=== PATIENT | female | born 1960 | race Caucasian/White ===

== ENCOUNTER 2016-05-22 16:58 | Inpatient (IN) | payer SELFPAY ==
[~2016-05-22] VITALS: Ht 160 cm; Wt 52.1 kg
[~2016-05-22 16:58] MED LIST: ALBU0.086 INH; ALBU6.7H INH; CEFD300C PO; IBUP800T23 PO; PROM25TA5 PO
[2016-05-22 17:00] VITALS: BP 126/65; PULSE 110; RESP 18; TEMP 98.1
[2016-05-22 22:34] VITALS: BP 114/75; PULSE 100; RESP 18; O2SAT 95
[2016-05-22] MEDS ORDERED: ALBU.5I NEB (23:19)
[2016-05-22 23:20] VITALS: BP 151/86; PULSE 87; RESP 21; O2SAT 100
[2016-05-22] MEDS ORDERED: SODIUM CHLOR 0.9% 1000 ML INJ 1,000 ML IV SCH (23:26)
[2016-05-22] MEDS ORDERED: SODIUM CHLORIDE 0.9% FLUSH 5 ML FLUSH IVF PRN (23:30)
[2016-05-22] MEDS ORDERED: ONDANSETRON HCL 4 MG/2 ML VIAL IVP ONE (23:30)
[2016-05-22] MEDS ORDERED: MORPHINE SULFATE 4 MG/ML INJ IV PUSH ONE (23:30)
--- NOTE | 2016-05-22 23:31 | PD ---
HPI Chief Complaint: GI Complaint Time Seen by Provider: 23:22 Travel History International Travel<30 days: No Contact w/Intl Traveler<30days: No Traveled to known affect area: No History of Present Illness HPI The patient is a 55-year-old female who presents emergency department for 3-4 day history of flulike symptoms. The patient complains of body aches, dry nonproductive cough, then developed nausea, vomiting, diarrhea. The patient states she is unable to eat or drink for the last 2 days secondary to persistent nausea. She complains of lower abdominal pain and cramping that is intermittent and is associated loose, watery, diarrhea. She also complains of foul-smelling urine with a dark color. The patient states she was recently exposed to a family member with influenza and a family member with pneumonia. The patient does not currently have a primary physician. She does complain of subjective fevers at home with intermittent chills and sweats. Symptoms are moderate, there are no alleviating or exacerbating factors. PFSH Past Medical History Depression: Yes Cancer: Yes (ESOPHAGEAL) Diminished Hearing: No Musculoskeletal: Yes (PRIOR T11 FX, CHRONIC BACK PAIN) Neurologic: Yes ?: Not : 2 Para: 2 Tubal Ligation: Yes Past Surgical History Cardiac Surgery: No Other Surgery: Yes (CANCER SX) Social History Alcohol Use: Yes (FREQUENT USE) Tobacco Use: Yes (0.5 PPD) Substance Use: No Allergies-Medications (Allergen,Severity, Reaction): Coded Allergies: Codeine (Verified Allergy, Severe, Rash, 05/22/16) Reported Meds & Prescriptions Reported Meds & Active Scripts Active Reported Albuterol Neb (Albuterol Sulfate) 2.5 Mg/0.5 Ml Neb 2.5 Mg NEB Q4HR NEB PRN Note: The Albuterol Sulfate Inhalation Solution is concentrated and must be diluted. Read complete instructions carefully before using. Review of Systems Except as stated in HPI: all other systems reviewed are Neg General / Constitutional: Positive: Fever, Chills HENT: No: Headaches Cardiovascular: No: Chest Pain or Discomfort Respiratory: Positive: Cough, Shortness of Breath Gastrointestinal: Positive: Nausea, Vomiting, Diarrhea, Abdominal Pain Genitourinary: Positive: Other (concentrated and foul-smelling urine) Musculoskeletal: Positive: Myalgias, Weakness Skin: No Rash Neurologic: Positive: Weakness Physical Exam Narrative GENERAL: Awake, alert, 55-year-old female appears her stated age and is in no acute respiratory distress. SKIN: Warm and dry. HEAD: Atraumatic. Normocephalic. EYES: Pupils equal and round. No scleral icterus. No injection or drainage. ENT: No nasal bleeding or discharge. Dry mucous membranes. NECK: Trachea midline. No JVD. CARDIOVASCULAR: Regular rate and rhythm. No murmur appreciated. Heart rate in the 90s. RESPIRATORY: No accessory muscle use. Clear to auscultation. Breath sounds equal bilaterally. GASTROINTESTINAL: Abdomen soft, tender palpation lower quadrants bilaterally. Back: No CVA tenderness. Well-healed scar of the right scapula. MUSCULOSKELETAL: No obvious deformities. No clubbing. No cyanosis. No edema. NEUROLOGICAL: Awake and alert. No obvious cranial nerve deficits. Motor grossly within normal limits. Normal speech. PSYCHIATRIC: Appropriate mood and affect; insight and judgment normal. Data Data Last Documented VS Vital Signs Date Time Temp Pulse Resp B/P Pulse Ox O2 Delivery O2 Flow Rate FiO2 05/23/16 01:00 18 05/22/16 23:20 87 151/86 100 Room Air 05/22/16 17:00 98.1 Orders Complete Blood Count With Diff (05/22/16 23:26) Comprehensive Metabolic Panel (05/22/16 23:26) Lipase (05/22/16 23:26) Lactic Acid (05/22/16 23:26) Urinalysis - C+S If Indicated (05/22/16 23:26) Ct Abd/Pel W/O Iv Contrast (05/22/16 23:26) Iv Access Insert/Monitor (05/22/16 23:26) Ecg Monitoring (05/22/16 23:26) Oximetry (05/22/16 23:26) Morphine Inj (Morphine Inj) (05/22/16 23:30) Ondansetron Inj (Zofran Inj) (05/22/16 23:30) Sodium Chlor 0.9% 1000 Ml Inj (Ns 1000 M (05/22/16 23:26) Sodium Chloride 0.9% Flush (Ns Flush) (05/22/16 23:30) Chest, Single Ap (05/22/16 23:26) Influenzae A/B Antigen (05/22/16 23:26) Urine Culture (05/22/16 23:52) Ceftriaxone Inj (Rocephin Inj) (05/23/16 00:45) Azithromycin Inj (Zithromax Inj) (05/23/16 01:15) Admit Order (Ed Use Only) (05/23/16 01:20) Labs Laboratory Tests Test 05/22/16 05/22/16 23:38 23:52 White Blood Count 4.3 TH/MM3 Red Blood Count 3.95 MIL/MM3 Hemoglobin 13.5 GM/DL Hematocrit 39.4 % Mean Corpuscular Volume 99.9 FL Mean Corpuscular Hemoglobin 34.2 PG Mean Corpuscular Hemoglobin 34.3 % Concent Red Cell Distribution Width 14.1 % Platelet Count 108 TH/MM3 Mean Platelet Volume 10.9 FL Neutrophils (%) (Auto) 71.4 % Lymphocytes (%) (Auto) 19.0 % Monocytes (%) (Auto) 9.1 % Eosinophils (%) (Auto) 0.1 % Basophils (%) (Auto) 0.4 % Neutrophils # (Auto) 3.1 TH/MM3 Lymphocytes # (Auto) 0.8 TH/MM3 Monocytes # (Auto) 0.4 TH/MM3 Eosinophils # (Auto) 0.0 TH/MM3 Basophils # (Auto) 0.0 TH/MM3 CBC Comment DIFF FINAL Differential Comment Sodium Level 130 MEQ/L Potassium Level 4.0 MEQ/L Chloride Level 94 MEQ/L Carbon Dioxide Level 23.1 MEQ/L Anion Gap 13 MEQ/L Blood Urea Nitrogen 8 MG/DL Creatinine 0.92 MG/DL Estimat Glomerular Filtration 63 ML/MIN Rate Random Glucose 89 MG/DL Lactic Acid Level 1.4 mmol/L Calcium Level 8.5 MG/DL Total Bilirubin 0.4 MG/DL Aspartate Amino Transf 47 U/L (AST/SGOT) Alanine Aminotransferase 34 U/L (ALT/SGPT) Alkaline Phosphatase 66 U/L Total Protein 7.4 GM/DL Albumin 3.4 GM/DL Lipase 243 U/L Urine Color YELLOW Urine Turbidity HAZY Urine pH 6.0 Urine Specific [place] 1.014 Urine Protein TRACE mg/dL Urine Glucose (UA) NEG mg/dL Urine Ketones 40 mg/dL Urine Occult Blood MOD Urine Nitrite POS Urine Bilirubin NEG Urine Urobilinogen LESS THAN 2.0 MG/DL Urine Leukocyte Esterase LARGE Urine RBC 7 /hpf Urine WBC 157 /hpf Urine WBC Clumps FEW Urine Squamous Epithelial 6 /hpf Cells Urine Renal Epithelial Cells <1 /hpf Urine Bacteria MOD /hpf Urine Hyaline Casts 2 /lpf Urine Mucus FEW /lpf Microscopic Urinalysis Comment CULTURE INDICATED MDM Medical Decision Making Medical Screen Exam Complete: Yes Emergency Medical Condition: Yes Medical Record Reviewed: Yes Interpretation(s) Last Impressions Chest X-Ray 05/22/162325 Signed Impressions: Service Date/Time: May 23:33 - CONCLUSION: 1. No consolidative infiltrate in the right lower lung without evidence of pleural effusion. 2. Air-containing oval structure superimposes upon the lower right heart silhouette, probably related to a bowel structure crossing the diaphragm. CT abdomen/pelvis has been ordered and this finding can be further assessed at that time. Gerson Lafleur MD Abdomen/Pelvis CT 05/22/162325 Signed Impressions: Service Date/Time: May 23:58 - CONCLUSION: 1. No dilated loops of small or large bowel. 2. P. air-containing structure seen on recent chest x-ray represents a gastric pull-through procedure. The infiltrate seen in the right lower lung is densely consolidative and contains air bronchograms. Gerson Lafleur MD Differential Diagnosis Differential diagnosis includes dehydration, influenza, gastroenteritis, colitis , enteritis, pneumonia, electrolyte abnormality. Narrative Course IV was established, labs are drawn and sent, and the patient was placed on cardiac telemetry monitoring and continuous pulse oximetry monitoring. The patient was administered morphine, Zofran, and IV fluids. Chest x-ray was obtained. CT of the abdomen and pelvis was ordered. UA was sent to lab. UA is consistent with infection, therefore, patient was administered Rocephin 1 g intravenously. Sodium is mildly low at 130, otherwise electrolytes are mostly unremarkable. White count is normal, increase in monocytes, patient may have underlying viral gastroenteritis with pyelonephritis. Chest x-ray reveals a right lower lobe pneumonia, therefore, Zithromax was ordered. The patient's white count is normal and lactic acid is normal, rare, patient does have pyelonephritis and a right lower lobe pneumonia with gastroenteritis and poor oral intake. Therefore, the patient will be admitted. The patient does not have a primary physician, therefore, the on-call medical service was paged for admission. Physician Communication Physician Communication The on-call medical service was paged for admission. I discussed the patient with Dr. Mckenna who agrees with 23 hour observation. Diagnosis Primary Impression: Pneumonia Qualified Code: J18.1 - Pneumonia of right lower lobe due to infectious organism Additional Impressions: Pyelonephritis Gastroenteritis Admitting Information Admitting Physician Requests: Observation Condition: Stable Ron Melissa MD May 22, 2016 23:31
--- NOTE | 2016-05-23 00:06 | RADRPT ---
EXAM DATE/TIME: 05/22/2016 23:33 [facility] COMPARISON: CHEST SINGLE AP, June 03, 2014, 8:35. INDICATIONS : Fever, cough. MEDICAL HISTORY : Carcinoma, esophageal. Chronic obstructive pulmonary disease. SURGICAL HISTORY : Unobtainable. ENCOUNTER: Initial ACUITY: 3 days PAIN SCORE: 0/10 LOCATION: Bilateral chest FINDINGS: Non-consolidative infiltrate at the right lung base causes loss of delineation of the central right h emidiaphragm. Evidence of prior surgery to the right thorax with anastomosis suture in the hilar and medial right lower lung. 3 mm calcification left apex unchanged from prior exam May 2014. Multip le hemoclips in the mediastinum and left upper quadrant. The heart is normal in size. Air-containin g structure in the right retrocardiac region could represent a hiatus hernia, however, there is histo ry of prior cancer surgery to the esophagus and stomach.. CONCLUSION: 1. No consolidative infiltrate in the right lower lung without evidence of pleural effusion. 2. Air-containing oval structure superimposes upon the lower right heart silhouette, probably related to a bowel structure crossing the diaphragm. CT abdomen/pelvis has been ordered and this finding ca n be further assessed at that time. Gerson Lafleur MD on May 23, 2016 at 0:01 Board Certified Radiologist. This report was verified electronically.
[2016-05-23 00:08] LABS: AUTOMATED NEUTROPHIL # 3.1 TH/MM3 (1.8-7.7); BASOPHIL % 0.4 % (0.0-2.0); EOSINOPHIL % 0.1 % (0.0-4.0); HEMATOCRIT 39.4 % (35.0-46.0); HEMO FLAGS DIFF FINAL; LYMPHOCYTE # 0.8 TH/MM3 (1.0-4.8); MEAN CELL VOLUME 99.9 FL (80.0-100.0); MEAN CORPUSCULAR HEMOGLOBIN 34.2 PG (27.0-34.0); MEAN CORPUSCULAR HGB CONC 34.3 % (32.0-36.0); MONO % 9.1 % (0.0-8.0); NEUT % 71.4 % (16.0-70.0); PLATELET COUNT 108 TH/MM3 (150-450); RED BLOOD COUNT 3.95 MIL/MM3 (4.00-5.30); RED CELL DISTRIBUTION WIDTH 14.1 % (11.6-17.2); WHITE BLOOD COUNT 4.3 TH/MM3 (4.0-11.0)
[2016-05-23 00:21] LABS: BACTERIA, URINE MOD /hpf; BLOOD, URINE MOD (NEG); COMMENT (UR) CULTURE INDICATED; CULTURE IF INDICATED CULTURE INDICATED; GLUCOSE,URINE NEG (NEG); HYALINE CAST, URINE 2 /lpf (RARE); KETONE, URINE 40 mg/dL (NEG); MUCUS URINE FEW /lpf (OCC); NITRITE,URINE POS (NEG); RENAL EPITHELIAL CELLS <1 /hpf; SQUAMOUS EPITHELIAL CELL URINE 6 /hpf (0-5); URINE COLOR YELLOW (YELLW/STRAW)
[2016-05-23 00:27] LABS: ALKALINE PHOSPHATASE 66 U/L (45-117); ALT (GPT) 34 U/L (10-53); ANION GAP 13 MEQ/L (5-15); AST (GOT) 47 U/L (15-37); BICARBONATE 23.1 MEQ/L (21.0-32.0); BLOOD UREA NITROGEN 8 MG/DL (7-18); CHLORIDE 94 MEQ/L (98-107); GLOMERULAR FILTRATION RATE 63 ML/MIN (>89); SODIUM (NA) 130 MEQ/L (136-145); TOTAL BILIRUBIN ADULT 0.4 MG/DL (0.2-1.0)
--- NOTE | 2016-05-23 00:40 | RADRPT ---
EXAM DATE/TIME: 05/22/2016 23:58 [facility] COMPARISON: CHEST SINGLE AP, May 22, 2016, 23:33. INDICATIONS : Nausea, vomiting, and diarrhea. ORAL CONTRAST: No oral contrast ingested. RADIATION DOSE: 4.66 CTDIvol (mGy) MEDICAL HISTORY : Gastroesophageal reflux disease. Carcinoma, not otherwise specified. SURGICAL HISTORY : Tubal ligation. Hip replacement. ENCOUNTER: Initial ACUITY: 1 day PAIN SCALE: 5/10 LOCATION: abdomen TECHNIQUE: Volumetric scanning of the abdomen and pelvis was performed. Using automated exposure control and ad justment of the mA and/or kV according to patient size, radiation dose was kept as low as reasonably achievable to obtain optimal diagnostic quality images. FINDINGS: LOWER LUNGS: There is a dense area of consolidation in the right lower lung containing air bronchograms measuring 3 cm in size. Gastric pull-through procedure with air-fluid level. These findings do correlate with the appearance of the recent chest x-ray. LIVER: Homogeneous density without lesion for noncontrast technique. There is no dilation of the biliary tr ee. No calcified gallstones. SPLEEN: Normal size without lesion. PANCREAS: Within normal limits. KIDNEYS: Normal in size and shape. There is no mass, stone, or hydronephrosis. ADRENAL GLANDS: Within normal limits. VASCULAR: There is no aortic aneurysm. BOWEL/MESENTERY: The stomach, small bowel, and colon demonstrate no acute abnormality. There is no free intraperitone al air or fluid. ABDOMINAL WALL: Within normal limits. RETROPERITONEUM: There is no lymphadenopathy. BLADDER: No wall thickening or mass. REPRODUCTIVE: Within normal limits. INGUINAL: There is no lymphadenopathy or hernia. MUSCULOSKELETAL: Right total hip arthroplasty. No lytic lesions. CONCLUSION: 1. No dilated loops of small or large bowel. 2. P. air-containing structure seen on recent chest x-ray represents a gastric pull-through procedure . The infiltrate seen in the right lower lung is densely consolidative and contains air bronchograms . Gerson Lafleur MD on May 23, 2016 at 0:34 Board Certified Radiologist. This report was verified electronically.
[2016-05-23] MEDS ORDERED: cefTRIAXone INJ 1,000 MG in SODIUM CHLORIDE 0.9% INJ 100 ML IV ONE (00:45)
[2016-05-23] MEDS ORDERED: AZITHROMYCIN INJ 500 MG in SODIUM CHLOR 0.9% 250 ML INJ 250 ML IV ONE (01:15)
[2016-05-23] MEDS ORDERED: SODIUM CHLORIDE 0.9% FLUSH 5 ML FLUSH FLUSH PRN (01:30)
[2016-05-23] MEDS ORDERED: RESP: ALBUTEROL 2.5 MG/IPRATROPIUM 0.5 MG NEB (PRN) NEB (01:30)
[2016-05-23] MEDS ORDERED: BISACODYL 10 MG SUPP PR PRN (01:30)
[2016-05-23] MEDS: SODIUM CHLOR 0.9% 1000 ML INJ 1,000 ML IV SCH ×2 (02:10→09:50)
[2016-05-23 02:15] VITALS: BP 120/73; PULSE 93; RESP 21; O2SAT 97
--- NOTE | 2016-05-23 03:10 | HHI.HP ---
[facility] No Primary Care Physician Admission Diagnosis right lower lobe pneumonia, pyelonephritis, gastroenteritis Diagnoses: (1) PNA (pneumonia) Diagnosis: Principal (2) UTI (urinary tract infection) Diagnosis: Principal (3) Tobacco abuse Diagnosis: Principal Travel History International Travel<30 Days: No Contact w/Intl Traveler <30 Da: No Traveled to Known Affected Are: No History of Present Illness This is a 55-year-old female with a PMH of Anxiety, Stomach/Esophageal CA and Tobacco Abuse who presented to the ER with complaints of generalized fatigue and non-productive cough x4 days w/ associated nausea/vomiting and diarrhea. Denies fever, SOB, chest pain or chills. Does report sick contacts w/ exposure to Influenza and PNA. On arrival, BP 126/65, HR 110, O2 sat 95% on RA, Afebrile. WBC normal. Platelets 108, previously 137 on 06/07/14. Chemistry essentially unremarkable except for GFR of 63. Lactic Acid 1.4. UA positive for UTI. CXR with consolidative infiltrate right lower lung. CT Abd/Pelvis w/ no dilatation of small or large bowel loops, RLL infiltrate. Influenza negative. S/p Urine Culture in ER and Rocephin/Zithro. Review of Systems Except as stated in HPI: all other systems reviewed are Neg ROS: 14 point review of systems otherwise negative. Past Family Social History Past Medical History PMH: Anxiety, Stomach/Esophageal CA and Tobacco Abuse Past Surgical History PAST SURGICAL HISTORY: Ex Lap for Stomach CA Allergies: Coded Allergies: Codeine (Verified Allergy, Severe, Rash, 05/22/16) Family History PAST FAMILY HISTORY: Reviewed. No h/o DM or CAD Social History PAST SOCIAL HISTORY: Drinks multiple times a week. Smokes 1/2ppd. Denies drug use. Physical Exam Vital Signs Vital Signs Date Time Temp Pulse Resp B/P Pulse Ox O2 Delivery O2 Flow Rate FiO2 05/23/16 01:00 18 05/22/16 23:20 87 21 151/86 100 Room Air 05/22/16 22:34 100 18 114/75 95 Room Air 05/22/16 17:00 98.1 110 18 126/65 Physical Exam PE: GENERAL: Middle-aged white female in no acute distress. HEENT: PERRLA, EOMI. No scleral icterus or conjunctival pallor. No lid lag or facial droop. CARDIOVASCULAR: Regular rate and rhythm. No obvious murmurs to auscultation. No chest tenderness to palpation. RESPIRATORY: No obvious rhonchi or wheezing. Clear to auscultation. Breath sounds equal bilaterally. GASTROINTESTINAL: Abdomen soft, mild generalized tenderness to palpation, nondistended. BS normal. MUSCULOSKELETAL: Extremities without clubbing, cyanosis, or edema. No obvious deformities. NEUROLOGICAL: Awake, alert and oriented x4. No focal neurologic deficits. Moving both upper and lower extremities spontaneously. Laboratory Laboratory Tests Test 05/22/16 05/22/16 23:38 23:52 White Blood Count 4.3 Red Blood Count 3.95 Hemoglobin 13.5 Hematocrit 39.4 Mean Corpuscular Volume 99.9 Mean Corpuscular Hemoglobin 34.2 Mean Corpuscular Hemoglobin 34.3 Concent Red Cell Distribution Width 14.1 Platelet Count 108 Mean Platelet Volume 10.9 Neutrophils (%) (Auto) 71.4 Lymphocytes (%) (Auto) 19.0 Monocytes (%) (Auto) 9.1 Eosinophils (%) (Auto) 0.1 Basophils (%) (Auto) 0.4 Neutrophils # (Auto) 3.1 Lymphocytes # (Auto) 0.8 Monocytes # (Auto) 0.4 Eosinophils # (Auto) 0.0 Basophils # (Auto) 0.0 CBC Comment DIFF FINAL Differential Comment Sodium Level 130 Potassium Level 4.0 Chloride Level 94 Carbon Dioxide Level 23.1 Anion Gap 13 Blood Urea Nitrogen 8 Creatinine 0.92 Estimat Glomerular Filtration 63 Rate Random Glucose 89 Lactic Acid Level 1.4 Calcium Level 8.5 Total Bilirubin 0.4 Aspartate Amino Transf 47 (AST/SGOT) Alanine Aminotransferase 34 (ALT/SGPT) Alkaline Phosphatase 66 Total Protein 7.4 Albumin 3.4 Lipase 243 Urine Color YELLOW Urine Turbidity HAZY Urine pH 6.0 Urine Specific [place] 1.014 Urine Protein TRACE Urine Glucose (UA) NEG Urine Ketones 40 Urine Occult Blood MOD Urine Nitrite POS Urine Bilirubin NEG Urine Urobilinogen LESS THAN 2.0 Urine Leukocyte Esterase LARGE Urine RBC 7 Urine WBC 157 Urine WBC Clumps FEW Urine Squamous Epithelial 6 Cells Urine Renal Epithelial Cells <1 Urine Bacteria MOD Urine Hyaline Casts 2 Urine Mucus FEW Microscopic Urinalysis Comment CULTURE INDICATED Date/Time Procedure Status Source Growth 05/22/16 23:52 Urine Culture Received Urine Clean Catch Pending 05/22/16 23:38 Influenza Types A,B Antigen (TIFFANIE) - Final Complete Nasal Aspirate NEGATIVE FOR FLU A AND B ANTIGEN.... Result Diagram: 05/22/16233705/22/162337 Assessment and Plan Problem List: (1) UTI (urinary tract infection) ICD Code: N39.0 Status: Acute (2) PNA (pneumonia) ICD Code: J18.9 Status: Acute (3) Tobacco abuse ICD Code: Z72.0 Status: Acute Assessment and Plan A/P: 1. UTI: U/a w/ UTI, s/p Urine Culture and IV Rocephin in ER, will continue w/ IV Abx, follow up cultures, IVF for hydration. Antiemetics as needed. CT Abd/ Pelvis negative for small/large bowel dilatation, images reviewed by me. 2. PNA: CXR w/ RLL consolidation, images reviewed by me, c/o non-productive cough, +sick contacts w/ Influenza and PNA. Influenza negative. S/p Rocephin/ Zithro in ER, will continue w/ IV Abx, DuoNeb, Mucinex, Symbicort. 3. Tobacco Abuse: Pt counselled. Ativan/NicoDerm prn if needed. 4. DVT Prophylaxis: SCD/Teds. 5. Social work for d/c planning as needed. 6. Case discussed w/ ER physician at length. Ruth Mckenna MD May 23, 2016 03:10
[2016-05-23 04:53] VITALS: BP 138/67; PULSE 81; RESP 18; TEMP 97.7; O2SAT 97
[2016-05-23] MEDS: ONDANSETRON HCL 4 MG/2 ML VIAL IVP PRN ×3 (05:25→21:33)
[2016-05-23 08:00] VITALS: BP 129/77; PULSE 87; RESP 18; TEMP 99.8; O2SAT 95
[2016-05-23] MEDS: SODIUM CHLORIDE 0.9% FLUSH 5 ML FLUSH FLUSH SCH ×2 (08:35→21:00)
[2016-05-23] MEDS: guaiFENesin E.R. 600 MG TAB PO SCH ×2 (08:35→21:33)
[2016-05-23] MEDS: MORPHINE SULFATE 4 MG/ML INJ IV PRN ×2 (08:36→18:23)
[2016-05-23] MEDS: BUDESONIDE-FORMOTEROL 160/4.5 MCG INHALER INH SCH ×2 (09:51→21:33)
--- NOTE | 2016-05-23 10:36 | HHI.PR ---
Subjective Remarks Follow-up for pneumonia. The patient is feeling better today. She has been able to ambulate some. She states that her urine had been some foul-smelling. She has some lower abdominal discomfort. She states that she had esophageal stomach cancer years ago, but was treated. Objective Vitals Vital Signs Date Time Temp Pulse Resp B/P Pulse Ox O2 Delivery O2 Flow Rate FiO2 05/23/16 08:00 99.8 87 18 129/77 95 05/23/16 04:53 97.7 81 18 138/67 97 05/23/16 02:15 93 21 120/73 97 Room Air 05/23/16 01:00 18 05/22/16 23:20 87 21 151/86 100 Room Air 05/22/16 22:34 100 18 114/75 95 Room Air 05/22/16 17:00 98.1 110 18 126/65 I/O 05/22/16 05/22/16 05/22/16 05/23/16 05/23/16 05/23/16 07:00 15:00 23:00 07:00 15:00 23:00 Intake Total 679 ml Balance 679 ml Intake IV Total 679 ml Result Diagram: 05/22/16 2338 05/22/168 Imaging Last Impressions Chest X-Ray 05/22/162325 Signed Impressions: Service Date/Time: May 23:33 - CONCLUSION: 1. No consolidative infiltrate in the right lower lung without evidence of pleural effusion. 2. Air-containing oval structure superimposes upon the lower right heart silhouette, probably related to a bowel structure crossing the diaphragm. CT abdomen/pelvis has been ordered and this finding can be further assessed at that time. Gerson Lafleur MD Abdomen/Pelvis CT 05/22/162325 Signed Impressions: Service Date/Time: May 23:58 - CONCLUSION: 1. No dilated loops of small or large bowel. 2. P. air-containing structure seen on recent chest x-ray represents a gastric pull-through procedure. The infiltrate seen in the right lower lung is densely consolidative and contains air bronchograms. Gerson Lafleur MD Objective Remarks GENERAL: Well-developed well-nourished. In no acute distress. SKIN: Warm and dry. No lesions noted. HEENT: Normocephalic. Pupils equal and round. Mucous membranes pink and moist. CARDIOVASCULAR: Regular rate and rhythm. No murmur appreciated. RESPIRATORY: No accessory muscle use. Clear to auscultation. Decreased breath sounds bilaterally. GASTROINTESTINAL: Abdomen soft, non-tender, nondistended. Bowel sounds x4. Right CVA tenderness. MUSCULOSKELETAL: No obvious deformities. No clubbing or cyanosis. No edema. NEUROLOGICAL: Awake and alert. No focal neurological deficits. Moves upper and lower extremities spontaneously. Normal speech. PSYCHIATRIC: Appropriate mood and affect; insight and judgment normal. A/P Problem List: (1) UTI (urinary tract infection) ICD Code: N39.0 Status: Acute (2) PNA (pneumonia) ICD Code: J18.9 Status: Acute (3) Tobacco abuse ICD Code: Z72.0 Status: Chronic Assessment and Plan 55-year-old female with a PMH of Anxiety, Stomach/Esophageal CA and Tobacco Abuse who presented with generalized fatigue and non-productive cough x4 days Sepsis secondary to PNA and UTI: U/a w/ evidence of UTI, possible pyelonephritis . Continue empiric IV Rocephin. Follow-up urine culture. IVF for hydration. Antiemetics as needed. CT Abd/Pelvis unremarkable for any significant intra-abdominal finding. PNA: CXR w/ RLL consolidation, personally reviewed. Influenza negative. Continue IV azithromycin and Rocephin. DuoNeb, Mucinex, Symbicort. Check urinary antigens. Tobacco Abuse: Pt counseling. NicoDerm prn if needed. DVT Prophylaxis: SCD/Teds. Written by Zbigniew Collins, acting as scribe for Dr. Ochoa on 05/23/16 at 10:35. All or portions of this note were transcribed by scribe []. I, Dr. Nabil Ochoa personally performed the history, physical exam, and medical decision making; and confirmed the accuracy of the information in the transcribed note. Authenticated by Dr. Nabil Ochoa on 05/23/16 at 14:47. Discharge Planning Follow-up cultures, possible DC tomorrow if patient continues to improve. Zbigniew Collins May 23, 2016 10:36 Nabil Ochoa MD May 23, 2016 14:48
[2016-05-23 11:29] LABS: BICARBONATE 22.8 MEQ/L (21.0-32.0); POTASSIUM 3.4 MEQ/L (3.5-5.1)
[2016-05-23 11:44] LABS: CALCIUM-PROTEIN CORRECTED 8.3 MG/DL (8.5-10.1)
[2016-05-23 12:00] VITALS: BP 130/79; PULSE 98; RESP 18; TEMP 101; O2SAT 94
[2016-05-23 16:00] VITALS: BP 118/70; PULSE 93; RESP 20; TEMP 102; O2SAT 92
[2016-05-23] MEDS: ACETAMINOPHEN 325 MG TAB PO PRN (18:22)
[2016-05-23] MEDS ORDERED: POTASSIUM CHLORIDE 20 MEQ CONTROLLED RELEASE TAB PO ONE (18:30)
[2016-05-23 20:03] VITALS: BP 121/86; PULSE 92; RESP 16; TEMP 100.7; O2SAT 93
[2016-05-24] VITALS (7 sets, daily range): BP systolic 116–143; BP diastolic 64–74; PULSE 78–87; RESP 18–22; TEMP 97.8–100.9; O2SAT 94–98
[2016-05-24] MEDS: AZITHROMYCIN 250 MG TAB PO SCH (00:13)
[2016-05-24] MEDS: ACETAMINOPHEN 325 MG TAB PO PRN ×2 (00:13→18:37)
[2016-05-24] MEDS: cefTRIAXone INJ 1,000 MG in SODIUM CHLORIDE 0.9% INJ 100 ML IV SCH (00:13)
[2016-05-24] MEDS: MORPHINE SULFATE 4 MG/ML INJ IV PRN ×4 (00:21→20:35)
[2016-05-24] MEDS ORDERED: AZITHROMYCIN INJ 500 MG in SODIUM CHLOR 0.9% 250 ML INJ 250 ML IV SCH (02:00)
[2016-05-24] MEDS: SODIUM CHLOR 0.9% 1000 ML INJ 1,000 ML IV SCH (04:22)
[2016-05-24] MEDS: ONDANSETRON HCL 4 MG/2 ML VIAL IVP PRN ×3 (04:28→18:08)
[2016-05-24 06:48] LABS: BASOPHIL % 0.5 % (0.0-2.0); EOSINOPHIL % 0.3 % (0.0-4.0); LYMPH % 21.5 % (9.0-44.0); LYMPHOCYTE # 0.6 TH/MM3 (1.0-4.8); MEAN CELL VOLUME 99.1 FL (80.0-100.0); MEAN CORPUSCULAR HEMOGLOBIN 33.9 PG (27.0-34.0); MEAN CORPUSCULAR HGB CONC 34.2 % (32.0-36.0); MONO % 7.9 % (0.0-8.0); NEUT % 69.8 % (16.0-70.0); PLATELET COUNT 80 TH/MM3 (150-450); RED BLOOD COUNT 3.13 MIL/MM3 (4.00-5.30); RED CELL DISTRIBUTION WIDTH 14.1 % (11.6-17.2); WHITE BLOOD COUNT 2.9 TH/MM3 (4.0-11.0)
[2016-05-24 07:08] LABS: HEMO FLAGS AUTO DIFF
[2016-05-24 07:13] LABS: BICARBONATE 20.5 MEQ/L (21.0-32.0); CALCIUM-PROTEIN CORRECTED 8.3 MG/DL (8.5-10.1); MAGNESIUM 1.9 MG/DL (1.5-2.5); TOTAL BILIRUBIN ADULT 0.2 MG/DL (0.2-1.0)
[2016-05-24] MEDS: SODIUM CHLORIDE 0.9% FLUSH 5 ML FLUSH FLUSH SCH ×2 (08:37→20:35)
--- NOTE | 2016-05-24 08:53 | HHI.PR ---
Subjective Remarks Follow-up for sepsis. The patient feels poorly today. The patient complains of flank pain today. Still with lower abdominal discomfort. She has been having nausea and dry heaving with decreased appetite, but no vomiting. Objective Vitals Vital Signs Date Time Temp Pulse Resp B/P Pulse Ox O2 Delivery O2 Flow Rate FiO2 05/24/16 08:00 98.1 78 18 116/65 96 05/24/16 04:17 98.7 79 22 120/64 95 05/24/16 01:48 98.9 83 21 126/71 95 05/23/16 20:03 100.7 92 16 121/86 93 05/23/16 16:00 102.0 93 20 118/70 92 05/23/16 12:00 101.0 98 18 130/79 94 I/O 05/23/16 05/23/16 05/23/16 05/24/16 05/24/16 05/24/16 07:00 15:00 23:00 07:00 15:00 23:00 Intake Total 679 ml 280 ml 770 ml Balance 679 ml 280 ml 770 ml Intake Oral 280 ml 120 ml IV Total 679 ml 650 ml # Voids 3 3 # Bowel Movements 1 Result Diagram: 05/24/16 0550 05/24/16 0550 Imaging Last Impressions Chest X-Ray 05/22/162325 Signed Impressions: Service Date/Time: May 23:33 - CONCLUSION: 1. No consolidative infiltrate in the right lower lung without evidence of pleural effusion. 2. Air-containing oval structure superimposes upon the lower right heart silhouette, probably related to a bowel structure crossing the diaphragm. CT abdomen/pelvis has been ordered and this finding can be further assessed at that time. Gerson Lafleur MD Abdomen/Pelvis CT 05/22/162325 Signed Impressions: Service Date/Time: May 23:58 - CONCLUSION: 1. No dilated loops of small or large bowel. 2. P. air-containing structure seen on recent chest x-ray represents a gastric pull-through procedure. The infiltrate seen in the right lower lung is densely consolidative and contains air bronchograms. Gerson Lafleur MD Objective Remarks GENERAL: Well-developed well-nourished. In no acute distress. SKIN: Warm and dry. No lesions noted. HEENT: Normocephalic. Pupils equal and round. Mucous membranes pink and moist. CARDIOVASCULAR: Regular rate and rhythm. No murmur appreciated. RESPIRATORY: No accessory muscle use. Clear to auscultation. Decreased breath sounds bilaterally. GASTROINTESTINAL: Abdomen soft, mild lower abdomen TTP, nondistended. Bowel sounds x4. Bilateral CVA tenderness, R>L. MUSCULOSKELETAL: No obvious deformities. No clubbing or cyanosis. No edema. NEUROLOGICAL: Awake and alert. No focal neurological deficits. Moves upper and lower extremities spontaneously. Normal speech. PSYCHIATRIC: Appropriate mood and affect; insight and judgment normal. A/P Problem List: (1) UTI (urinary tract infection) ICD Code: N39.0 Status: Acute (2) PNA (pneumonia) ICD Code: J18.9 Status: Acute (3) Tobacco abuse ICD Code: Z72.0 Status: Chronic Assessment and Plan 55-year-old female with a PMH of Anxiety, Stomach/Esophageal CA and Tobacco Abuse who presented with generalized fatigue and non-productive cough x4 days Sepsis: Tmax 102, tachycardia, WBC 2.9. Continue treatment with antibiotics as below. IVF. Check blood cultures. UTI, suspect pyelonephritis: U/a w/ evidence of UTI . Preliminary culture growing gram-negative rods. Continue empiric IV Rocephin. Follow-up urine culture. Antiemetics as needed. CT Abd/Pelvis unremarkable for any significant intra-abdominal finding. PNA: CXR w/ RLL consolidation, personally reviewed. Influenza and urinary antigens negative. Continue azithromycin and Rocephin. DuoNeb, Mucinex, Symbicort. Thrombocytopenia: Platelets decreased from 108 to 80. Rule out DIC, check fibrinogen and coags. Monitor CBC. Hypokalemia: Replace orally and add KCl to IV. Tobacco Abuse: Pt counseling. NicoDerm prn if needed. DVT Prophylaxis: SCD/Teds. Written by Zbigniew Collins, acting as scribe for Dr. Ochoa on 05/24/16 at 08:53. All or portions of this note were transcribed by scribe []. I, Dr. Nabil Ochoa personally performed the history, physical exam, and medical decision making; and confirmed the accuracy of the information in the transcribed note. Authenticated by Dr. Nabil Ochoa on 05/24/16 at 12:58. Discharge Planning Clinically worse today, meets sepsis criteria, admit to inpatient Zbigniew Collins May 24, 2016 08:53 Nabil Ochoa MD May 24, 2016 12:58
[2016-05-24] MEDS ORDERED: POTASSIUM CHLORIDE 20 MEQ CONTROLLED RELEASE TAB PO ONE (09:00)
[2016-05-24] MEDS: NS + KCL 20 MEQ INJ 1,000 ML IV SCH ×2 (09:25→20:35)
[2016-05-24] MEDS: BUDESONIDE-FORMOTEROL 160/4.5 MCG INHALER INH SCH ×2 (09:26→20:34)
[2016-05-24 09:29] LABS: PLATELET ESTIMATE SMEAR LOW (NORMAL); PLATELET MORPHOLOGY NORMAL (NORMAL); SCAN/DIFF AUTO DIFF CONFIRMED
[2016-05-24 09:37] LABS: APTT (PATIENT) 31.9 SEC (24.3-30.1); PROTHROMBIN TIME - PATIENT 10.7 SEC (9.8-11.6)
[2016-05-24] MEDS: guaiFENesin E.R. 600 MG TAB PO SCH ×2 (09:37→20:34)
[2016-05-24] MEDS ORDERED: SODIUM CHLOR 0.9% 250 ML INJ 250 ML IV ONE (12:00)
[2016-05-24] MEDS: POTASSIUM CHLOR 20 MEQ PREMIX 100 ML IV SCH ×2 (12:22→15:54)
[2016-05-25 00:18] VITALS: BP 142/85; PULSE 81; RESP 21; TEMP 98.7; O2SAT 98
[2016-05-25] MEDS: ONDANSETRON HCL 4 MG/2 ML VIAL IVP PRN ×4 (00:26→22:10)
[2016-05-25] MEDS: cefTRIAXone INJ 1,000 MG in SODIUM CHLORIDE 0.9% INJ 100 ML IV SCH (00:26)
[2016-05-25] MEDS: AZITHROMYCIN 250 MG TAB PO SCH (03:24)
[2016-05-25 04:00] VITALS: BP 125/75; PULSE 82; RESP 18; TEMP 98.7; O2SAT 99
[2016-05-25] MEDS: MORPHINE SULFATE 4 MG/ML INJ IV PRN ×4 (04:03→20:05)
[2016-05-25 08:00] VITALS: BP 145/78; PULSE 74; RESP 18; TEMP 98.2; O2SAT 96
[2016-05-25 08:26] LABS: AUTOMATED NEUTROPHIL # 1.7 TH/MM3 (1.8-7.7); BASOPHIL % 0.5 % (0.0-2.0); EOSINOPHIL % 0.5 % (0.0-4.0); HEMATOCRIT 31.7 % (35.0-46.0); LYMPH % 28.6 % (9.0-44.0); LYMPHOCYTE # 0.8 TH/MM3 (1.0-4.8); MEAN CELL VOLUME 99.7 FL (80.0-100.0); MEAN CORPUSCULAR HEMOGLOBIN 33.8 PG (27.0-34.0); MEAN CORPUSCULAR HGB CONC 33.9 % (32.0-36.0); MONO % 8.1 % (0.0-8.0); NEUT % 62.3 % (16.0-70.0); PLATELET COUNT 81 TH/MM3 (150-450); RED BLOOD COUNT 3.18 MIL/MM3 (4.00-5.30); RED CELL DISTRIBUTION WIDTH 14.2 % (11.6-17.2); WHITE BLOOD COUNT 2.7 TH/MM3 (4.0-11.0)
[2016-05-25 08:44] LABS: BICARBONATE 16.3 MEQ/L (21.0-32.0); MAGNESIUM 1.8 MG/DL (1.5-2.5); POTASSIUM 4.1 MEQ/L (3.5-5.1)
[2016-05-25 08:52] LABS: HEMO FLAGS AUTO DIFF
[2016-05-25] MEDS: BUDESONIDE-FORMOTEROL 160/4.5 MCG INHALER INH SCH ×2 (09:06→20:06)
[2016-05-25] MEDS: guaiFENesin E.R. 600 MG TAB PO SCH ×2 (09:06→20:05)
[2016-05-25] MEDS: SODIUM CHLORIDE 0.9% FLUSH 5 ML FLUSH FLUSH SCH ×2 (09:07→20:06)
[2016-05-25] MEDS: NS + KCL 20 MEQ INJ 1,000 ML IV SCH ×2 (09:14→20:09)
[2016-05-25 10:41] LABS: BURR CELLS 1+ (NORMAL)
[2016-05-25 10:42] LABS: PLATELET ESTIMATE SMEAR LOW (NORMAL); PLATELET MORPHOLOGY ENLARGED (NORMAL); SCAN/DIFF AUTO DIFF CONFIRMED
--- NOTE | 2016-05-25 11:55 | HHI.PR ---
Subjective Remarks F/U UTI and PNA. Usual abd pain dw RN Objective Vitals Vital Signs Date Time Temp Pulse Resp B/P Pulse Ox O2 Delivery O2 Flow Rate FiO2 05/25/16 08:00 98.2 74 18 145/78 96 05/25/16 04:00 98.7 82 18 125/75 99 05/25/16 00:18 98.7 81 21 142/85 98 05/24/16 19:22 97.8 83 21 143/74 98 05/24/16 18:34 100.9 05/24/16 16:00 100.4 87 18 131/70 94 05/24/16 12:00 98.7 83 18 127/66 96 I/O 05/24/16 05/24/16 05/24/16 05/25/16 05/25/16 05/25/16 07:00 15:00 23:00 07:00 15:00 23:00 Intake Total 770 ml 0 ml 120 ml Balance 770 ml 0 ml 120 ml Intake Oral 120 ml 0 ml 120 ml Oral Supplement 0 ml IV Total 650 ml # Voids 3 4 1 # Bowel Movements 0 Result Diagram: 05/25/1662505/25/16625 Imaging Last Impressions Chest X-Ray 05/22/162325 Signed Impressions: Service Date/Time: May 23:33 - CONCLUSION: 1. No consolidative infiltrate in the right lower lung without evidence of pleural effusion. 2. Air-containing oval structure superimposes upon the lower right heart silhouette, probably related to a bowel structure crossing the diaphragm. CT abdomen/pelvis has been ordered and this finding can be further assessed at that time. Gerson Lafleur MD Abdomen/Pelvis CT 05/22/162325 Signed Impressions: Service Date/Time: May 23:58 - CONCLUSION: 1. No dilated loops of small or large bowel. 2. P. air-containing structure seen on recent chest x-ray represents a gastric pull-through procedure. The infiltrate seen in the right lower lung is densely consolidative and contains air bronchograms. Gerson Lafleur MD Objective Remarks GENERAL: Well-developed well-nourished. In no acute distress. SKIN: Warm and dry. No lesions noted. HEENT: Normocephalic. Pupils equal and round. Mucous membranes pink and moist. CARDIOVASCULAR: Regular rate and rhythm. No murmur appreciated. RESPIRATORY: No accessory muscle use. Clear to auscultation. Decreased breath sounds bilaterally. GASTROINTESTINAL: Abdomen soft, mild lower abdomen TTP, nondistended. Bowel sounds x4. MUSCULOSKELETAL: No obvious deformities. No clubbing or cyanosis. No edema. NEUROLOGICAL: Awake and alert. No focal neurological deficits. Moves upper and lower extremities spontaneously. Normal speech. PSYCHIATRIC: Appropriate mood and affect; insight and judgment normal. Procedures None A/P Problem List: (1) UTI (urinary tract infection) ICD Code: N39.0 Status: Acute (2) PNA (pneumonia) ICD Code: J18.9 Status: Acute (3) Tobacco abuse ICD Code: Z72.0 Status: Chronic Assessment and Plan 55-year-old female with a PMH of Anxiety, Stomach/Esophageal CA and Tobacco Abuse who presented with generalized fatigue and non-productive cough x4 days Sepsis: Tmax 102, tachycardia, WBC 2.9. Improved but on culture about the worsening acidosis. Continue treatment with antibiotics as below. IVF. Check blood cultures negative to date. BMP and mag in the morning UTI, suspect pyelonephritis: U/a w/ evidence of UTI . Preliminary culture growing gram-negative rods. Continue empiric IV Rocephin. Follow-up urine culture. Antiemetics as needed. CT Abd/Pelvis unremarkable for any significant intra-abdominal finding. PNA: CXR w/ RLL consolidation, personally reviewed. Influenza and urinary antigens negative. Continue azithromycin and Rocephin. DuoNeb, Mucinex, Symbicort. Thrombocytopenia: Platelets decreased from 108 to 80. DIC workup negative. Stable thrombocytopenia. Monitor CBC. Hypokalemia: Replace orally and add KCl to IV. Tobacco Abuse: Pt counseling. NicoDerm prn if needed. DVT Prophylaxis: SCD/Teds. Discharge Planning Discharge in 1-2 days Nabil Ochoa MD May 25, 2016 11:55
[2016-05-25 12:00] VITALS: BP 107/73; PULSE 78; RESP 18; TEMP 98.2; O2SAT 95
[2016-05-25] MEDS ORDERED: CIPR-9 PO (13:42)
[2016-05-25] MEDS ORDERED: ZITH250T PO (13:42)
--- NOTE | 2016-05-25 13:42 | HHI.DCPOC ---
Discharge Care Plan Diagnosis: (1) UTI (urinary tract infection) (2) PNA (pneumonia) Your Health Problems Are: Difficulty with ADL Exercise Tolerance Goals to Promote Your Health * To prevent worsening of your condition and complications * To maintain your health at the optimal level Directions to Meet Your Goals Take your medications as prescribed Follow your dietary instruction Follow activity as directed Keep your appointments as scheduled Take your immunizations and boosters as scheduled If your symptoms worsen call your PCP, if no PCP go to Urgent Care Center or Emergency Room Smoking is Dangerous to Your Health. Avoid second hand smoke Call the 24-hour hour crisis hotline for domestic abuse at Nabil Ochoa MD May 25, 2016 13:42
[2016-05-25 16:00] VITALS: BP 129/73; PULSE 78; RESP 18; TEMP 98.5; O2SAT 99
[2016-05-25 20:00] VITALS: BP 126/82; PULSE 76; RESP 20; TEMP 98.7; O2SAT 97
[2016-05-26] VITALS: BP 141/84; PULSE 81; RESP 18; TEMP 98; O2SAT 96
[2016-05-26] MEDS: MORPHINE SULFATE 4 MG/ML INJ IV PRN ×7 (00:20→21:25)
[2016-05-26] MEDS: cefTRIAXone INJ 1,000 MG in SODIUM CHLORIDE 0.9% INJ 100 ML IV SCH (00:21)
[2016-05-26] MEDS: AZITHROMYCIN 250 MG TAB PO SCH (00:23)
[2016-05-26 04:00] VITALS: BP 145/83; PULSE 81; RESP 18; TEMP 97.7; O2SAT 97
[2016-05-26] MEDS: ONDANSETRON HCL 4 MG/2 ML VIAL IVP PRN ×3 (06:14→21:26)
[2016-05-26 06:54] LABS: AUTOMATED NEUTROPHIL # 1.7 TH/MM3 (1.8-7.7); BASOPHIL % 0.5 % (0.0-2.0); EOSINOPHIL % 1.8 % (0.0-4.0); HEMATOCRIT 32.4 % (35.0-46.0); LYMPH % 26.5 % (9.0-44.0); LYMPHOCYTE # 0.7 TH/MM3 (1.0-4.8); MEAN CELL VOLUME 100.1 FL (80.0-100.0); MEAN CORPUSCULAR HEMOGLOBIN 34.3 PG (27.0-34.0); MEAN CORPUSCULAR HGB CONC 34.3 % (32.0-36.0); NEUT % 62.2 % (16.0-70.0); PLATELET COUNT 96 TH/MM3 (150-450); RED BLOOD COUNT 3.23 MIL/MM3 (4.00-5.30); RED CELL DISTRIBUTION WIDTH 14.1 % (11.6-17.2); WHITE BLOOD COUNT 2.7 TH/MM3 (4.0-11.0)
[2016-05-26 07:04] LABS: HEMO FLAGS AUTO DIFF
[2016-05-26 07:07] LABS: BICARBONATE 13.9 MEQ/L (21.0-32.0); MAGNESIUM 1.7 MG/DL (1.5-2.5); POTASSIUM 4.3 MEQ/L (3.5-5.1)
[2016-05-26 08:00] VITALS: BP 137/71; PULSE 83; RESP 12; TEMP 98.7; O2SAT 96
[2016-05-26] MEDS: BUDESONIDE-FORMOTEROL 160/4.5 MCG INHALER INH SCH ×2 (08:09→21:25)
[2016-05-26] MEDS: guaiFENesin E.R. 600 MG TAB PO SCH ×2 (08:09→21:25)
[2016-05-26] MEDS: SODIUM CHLORIDE 0.9% FLUSH 5 ML FLUSH FLUSH SCH ×2 (08:11→21:25)
[2016-05-26 08:17] LABS: BURR CELLS 2+ (NORMAL); PLATELET ESTIMATE SMEAR LOW (NORMAL)
[2016-05-26] MEDS: NS + KCL 20 MEQ INJ 1,000 ML IV SCH ×2 (08:17→21:33)
[2016-05-26 08:18] LABS: PLATELET MORPHOLOGY NORMAL (NORMAL); SCAN/DIFF AUTO DIFF CONFIRMED
--- NOTE | 2016-05-26 11:36 | HHI.PR ---
Subjective Remarks Follow-up UTI and pneumonia. Still nauseous. Vomited 1 yesterday. Improving pain. Discussed with RN Objective Vitals Vital Signs Date Time Temp Pulse Resp B/P Pulse Ox O2 Delivery O2 Flow Rate FiO2 05/26/16 08:00 98.7 83 12 137/71 96 05/26/16 04:00 97.7 81 18 145/83 97 05/26/16 00:00 98.0 81 18 141/84 96 05/25/16 20:00 98.7 76 20 126/82 97 05/25/16 16:00 98.5 78 18 129/73 99 05/25/16 12:00 98.2 78 18 107/73 95 I/O 05/25/16 05/25/16 05/25/16 05/26/16 05/26/16 05/26/16 07:00 15:00 23:00 07:00 15:00 23:00 Intake Total 120 ml 1588 ml 120 ml 240 ml Output Total 1000 ml Balance 120 ml 1588 ml 120 ml -760 ml Intake Oral 120 ml 480 ml 120 ml 240 ml IV Total 1108 ml Output Urine Total 1000 ml # Voids 1 4 1 # Bowel Movements 0 0 0 Result Diagram: 05/26/16 0540 05/26/16 0540 Objective Remarks GENERAL: Well-developed well-nourished. In no acute distress. SKIN: Warm and dry. No lesions noted. HEENT: Normocephalic. Pupils equal and round. Mucous membranes pink and moist. CARDIOVASCULAR: Regular rate and rhythm. No murmur appreciated. RESPIRATORY: No accessory muscle use. Clear to auscultation. Decreased breath sounds bilaterally. GASTROINTESTINAL: Abdomen soft, mild lower abdomen TTP, nondistended. Bowel sounds x4. MUSCULOSKELETAL: No obvious deformities. No clubbing or cyanosis. No edema. NEUROLOGICAL: Awake and alert. No focal neurological deficits. Moves upper and lower extremities spontaneously. Normal speech. PSYCHIATRIC: Appropriate mood and affect; insight and judgment normal. Nonfocal Procedures None A/P Problem List: (1) UTI (urinary tract infection) ICD Code: N39.0 Status: Acute (2) PNA (pneumonia) ICD Code: J18.9 Status: Acute (3) Tobacco abuse ICD Code: Z72.0 Status: Chronic Assessment and Plan 55-year-old female with a PMH of Anxiety, Stomach/Esophageal CA and Tobacco Abuse who presented with generalized fatigue and non-productive cough x4 days Sepsis: Tmax 102, tachycardia, WBC 2.9. Improved but I am concerned about the worsening acidosis nightly secondary to vomiting. Continue treatment with antibiotics as below. IVF. Check blood cultures negative to date. BMP and mag in the morning. We'll add scheduled Reglan. Questionable RTA UTI, suspect pyelonephritis: U/a w/ evidence of UTI . Preliminary culture growing gram-negative rods. Continue empiric IV Rocephin. Follow-up urine culture. Antiemetics as needed. CT Abd/Pelvis unremarkable for any significant intra-abdominal finding. PNA: CXR w/ RLL consolidation, personally reviewed. Influenza and urinary antigens negative. Continue azithromycin and Rocephin. DuoNeb, Mucinex, Symbicort. Pancytopenia. DIC workup negative. Stable likely secondary to sepsis. Monitor CBC. Hypokalemia: Replace orally and add KCl to IV. Tobacco Abuse: Pt counseling. NicoDerm prn if needed. DVT Prophylaxis: SCD/Teds. Discharge Planning Not stable for discharge Nabil Ochoa MD May 26, 2016 11:36
[2016-05-26 12:00] VITALS: BP 139/76; PULSE 86; RESP 16; TEMP 98.4; O2SAT 97
[2016-05-26 16:00] VITALS: BP 115/62; PULSE 77; RESP 12; TEMP 98.4; O2SAT 97
[2016-05-26] MEDS ORDERED: PILL SPLITTER OTHER PRN (17:00)
[2016-05-26] MEDS: METOCLOPRAMIDE HCL 10 MG TAB PO SCH (17:41)
[2016-05-26 22:56] VITALS: BP 132/82; PULSE 77; RESP 20; TEMP 97.8; O2SAT 98
[2016-05-27 00:46] VITALS: BP 133/82; PULSE 88; RESP 20; TEMP 97.8; O2SAT 93
[2016-05-27] MEDS: MORPHINE SULFATE 4 MG/ML INJ IV PRN ×6 (00:59→20:16)
[2016-05-27] MEDS: cefTRIAXone INJ 1,000 MG in SODIUM CHLORIDE 0.9% INJ 100 ML IV SCH (01:00)
[2016-05-27] MEDS: AZITHROMYCIN 250 MG TAB PO SCH (01:00)
[2016-05-27] MEDS: ONDANSETRON HCL 4 MG/2 ML VIAL IVP PRN ×3 (04:18→20:16)
[2016-05-27 05:30] VITALS: BP 141/78; PULSE 78; RESP 22; TEMP 97.9; O2SAT 95
[2016-05-27 07:22] LABS: AUTOMATED NEUTROPHIL # 1.5 TH/MM3 (1.8-7.7); BASOPHIL % 0.3 % (0.0-2.0); EOSINOPHIL # 0.1 TH/MM3 (0-0.4); EOSINOPHIL % 3.6 % (0.0-4.0); HEMATOCRIT 31.9 % (35.0-46.0); HEMO FLAGS DIFF FINAL; LYMPH % 29.3 % (9.0-44.0); LYMPHOCYTE # 0.8 TH/MM3 (1.0-4.8); MEAN CELL VOLUME 98.8 FL (80.0-100.0); MEAN CORPUSCULAR HEMOGLOBIN 34.1 PG (27.0-34.0); MEAN CORPUSCULAR HGB CONC 34.5 % (32.0-36.0); MONO % 10.8 % (0.0-8.0); PLATELET COUNT 111 TH/MM3 (150-450); RED BLOOD COUNT 3.23 MIL/MM3 (4.00-5.30); RED CELL DISTRIBUTION WIDTH 14.3 % (11.6-17.2); WHITE BLOOD COUNT 2.7 TH/MM3 (4.0-11.0)
[2016-05-27] MEDS: SODIUM CHLORIDE 0.9% FLUSH 5 ML FLUSH FLUSH SCH ×2 (07:42→20:17)
[2016-05-27] MEDS: NS + KCL 20 MEQ INJ 1,000 ML IV SCH ×2 (07:43→20:17)
[2016-05-27] MEDS: METOCLOPRAMIDE HCL 10 MG TAB PO SCH ×3 (07:44→16:21)
[2016-05-27] MEDS: BUDESONIDE-FORMOTEROL 160/4.5 MCG INHALER INH SCH ×2 (07:44→20:17)
[2016-05-27] MEDS: guaiFENesin E.R. 600 MG TAB PO SCH ×2 (07:45→20:17)
[2016-05-27 07:48] LABS: BICARBONATE 14.2 MEQ/L (21.0-32.0); MAGNESIUM 1.7 MG/DL (1.5-2.5)
[2016-05-27 08:00] VITALS: BP 132/72; PULSE 84; RESP 12; TEMP 97.9; O2SAT 97
--- NOTE | 2016-05-27 10:00 | HHI.PR ---
Subjective Remarks Follow-up UTI and pneumonia. Continues to have nausea and dry heaves. Also reports of vertigo. Discussed with RN Objective Vitals Vital Signs Date Time Temp Pulse Resp B/P Pulse Ox O2 Delivery O2 Flow Rate FiO2 05/27/16 08:00 97.9 84 12 132/72 97 05/27/16 05:30 97.9 78 22 141/78 95 05/27/16 00:46 97.8 88 20 133/82 93 05/26/16 22:56 97.8 77 20 132/82 98 05/26/16 16:00 98.4 77 12 115/62 97 05/26/16 12:00 98.4 86 16 139/76 97 I/O 05/26/16 05/26/16 05/26/16 05/27/16 05/27/16 05/27/16 07:00 15:00 23:00 07:00 15:00 23:00 Intake Total 240 ml 1200 ml 1032 ml 240 ml Output Total 1000 ml 1000 ml 700 ml 900 ml Balance -760 ml 200 ml 332 ml -660 ml Intake Oral 240 ml 1200 ml 360 ml 240 ml IV Total 672 ml Output Urine Total 1000 ml 1000 ml 700 ml 900 ml # Bowel Movements 0 0 1 0 Result Diagram: 05/27/1661605/27/16616 Objective Remarks GENERAL: Well-developed well-nourished. In no acute distress. SKIN: Warm and dry. No lesions noted. HEENT: Normocephalic. Pupils equal and round. Mucous membranes pink and moist. CARDIOVASCULAR: Regular rate and rhythm. No murmur appreciated. RESPIRATORY: No accessory muscle use. Clear to auscultation. Decreased breath sounds bilaterally. GASTROINTESTINAL: Abdomen soft, mild lower abdomen TTP, nondistended. Bowel sounds x4. MUSCULOSKELETAL: No obvious deformities. No clubbing or cyanosis. No edema. NEUROLOGICAL: Awake and alert. No focal neurological deficits. Moves upper and lower extremities spontaneously. Normal speech. No nystagmus PSYCHIATRIC: Appropriate mood and affect; insight and judgment normal. Nonfocal Procedures None A/P Problem List: (1) UTI (urinary tract infection) ICD Code: N39.0 Status: Acute (2) PNA (pneumonia) ICD Code: J18.9 Status: Acute (3) Tobacco abuse ICD Code: Z72.0 Status: Chronic Assessment and Plan 55-year-old female with a PMH of Anxiety, Stomach/Esophageal CA and Tobacco Abuse who presented with generalized fatigue and non-productive cough x4 days Sepsis: Tmax 102, tachycardia, WBC 2.9. Improved. Continue treatment with antibiotics as below. IVF. Check blood cultures negative to date. BMP and mag in the morning. We'll add scheduled Reglan. Acidosis likely secondary to bicarbonate loss from vomiting. Continue IV fluids and add bicarbonate. Questionable RTA Vertigo. Nonfocal. Obtain head CT. Neurochecks and fall precautions. Antivert as needed UTI, suspect pyelonephritis: U/a w/ evidence of UTI . Urine culture with Escherichia coli switch IV Rocephin to Ceftin. FCT Abd/Pelvis unremarkable for any significant intra-abdominal finding. PNA: CXR w/ RLL consolidation, personally reviewed. Influenza and urinary antigens negative. Status post azithromycin and Rocephin. DuoNeb, Mucinex, Symbicort. Repeat chest surgery 6 weeks Pancytopenia. DIC workup negative. Stable likely secondary to sepsis. Monitor CBC. Hypokalemia: Replace orally and add KCl to IV. Tobacco Abuse: Pt counseling. NicoDerm prn if needed. DVT Prophylaxis: SCD/Teds. Discharge Planning Not stable for discharge Nabil Ochoa MD May 27, 2016 10:00
[2016-05-27] MEDS ORDERED: MECLIZINE HCL 25 MG TAB PO PRN (11:00)
[2016-05-27] MEDS: SODIUM BICARBONATE 650 MG TAB PO SCH ×2 (11:16→20:16)
[2016-05-27] MEDS: CEFUROXIME AXETIL 500 MG TAB PO SCH ×2 (11:16→20:16)
[2016-05-27 12:00] VITALS: BP 122/73; PULSE 92; RESP 16; TEMP 97.5; O2SAT 98
--- NOTE | 2016-05-27 13:01 | RADRPT ---
EXAM DATE/TIME: 05/27/2016 12:28 [facility] COMPARISON: CT BRAIN W/O CONTRAST, June 03, 2014, 7:50. INDICATIONS : Dizziness. RADIATION DOSE: 56 CTDIvol (mGy) MEDICAL HISTORY : Cardiovascular disease. Hypertension. Esophageal cancer. SURGICAL HISTORY : Tubal ligation. Chemo and Radiation . ENCOUNTER: Initial ACUITY: 1 day PAIN SCALE: 5/10 LOCATION: cranial TECHNIQUE: Multiple contiguous axial images were obtained of the head. Using automated exposure control and adj ustment of the mA and/or kV according to patient size, radiation dose was kept as low as reasonably a chievable to obtain optimal diagnostic quality images. FINDINGS: CEREBRUM: The ventricles are normal for age. No evidence of midline shift, mass lesion, hemorrhage or acute in farction. No extra-axial fluid collections are seen. POSTERIOR FOSSA: The cerebellum and brainstem are intact. The 4th ventricle is midline. The cerebellopontine angle i s unremarkable. There is a stable calcification in the left lateral fourth ventricle region likely re lated to calcified choroid. EXTRACRANIAL: The visualized portion of the orbits is intact. SKULL: The calvaria is intact. No evidence of skull fracture. CONCLUSION: No acute disease. Devon Johansen MD on May 27, 2016 at 12:58 Board Certified Radiologist. This report was verified electronically.
[2016-05-27 16:00] VITALS: BP 154/87; PULSE 85; RESP 16; TEMP 97.8; O2SAT 98
[2016-05-27 20:03] VITALS: BP 117/73; PULSE 87; RESP 16; TEMP 98.6; O2SAT 96
[2016-05-27] MEDS ORDERED: SODIUM BICARBONATE 325 MG TAB PO SCH (21:00)
[2016-05-28] MEDS: NS + KCL 20 MEQ INJ 1,000 ML IV SCH (00:01)
[2016-05-28 00:57] VITALS: BP 138/68; PULSE 85; RESP 18; TEMP 98.3; O2SAT 96
[2016-05-28] MEDS: ONDANSETRON HCL 4 MG/2 ML VIAL IVP PRN ×4 (03:57→22:30)
[2016-05-28] MEDS: MORPHINE SULFATE 4 MG/ML INJ IV PRN ×4 (03:57→11:28)
[2016-05-28 04:00] VITALS: BP 121/79; PULSE 82; RESP 16; TEMP 98.3; O2SAT 97
[2016-05-28 06:49] LABS: ANION GAP 13 MEQ/L (5-15); BICARBONATE 18.5 MEQ/L (21.0-32.0); BLOOD UREA NITROGEN LESS THAN 1 MG/DL (7-18); CHLORIDE 100 MEQ/L (98-107); GLOMERULAR FILTRATION RATE 193 ML/MIN (>89); MAGNESIUM 1.8 MG/DL (1.5-2.5); POTASSIUM 4.1 MEQ/L (3.5-5.1); SODIUM (NA) 131 MEQ/L (136-145)
[2016-05-28 08:07] VITALS: BP_SYST 84; PULSE 84; RESP 18; TEMP 98.4; O2SAT 97
[2016-05-28] MEDS: METOCLOPRAMIDE HCL 10 MG TAB PO SCH ×3 (08:14→17:28)
[2016-05-28] MEDS: SODIUM CHLORIDE 0.9% FLUSH 5 ML FLUSH FLUSH SCH ×2 (08:14→21:00)
[2016-05-28] MEDS: CEFUROXIME AXETIL 500 MG TAB PO SCH ×2 (08:14→22:16)
[2016-05-28] MEDS: SODIUM BICARBONATE 650 MG TAB PO SCH ×2 (08:15→22:15)
[2016-05-28] MEDS: BUDESONIDE-FORMOTEROL 160/4.5 MCG INHALER INH SCH ×2 (08:15→22:17)
[2016-05-28] MEDS: guaiFENesin E.R. 600 MG TAB PO SCH ×2 (08:15→22:16)
[2016-05-28 12:08] VITALS: BP 138/74; PULSE 76; RESP 18; TEMP 98; O2SAT 96
[2016-05-28] MEDS ORDERED: ACETAMINOPHEN 325 MG TAB PO PRN (12:15)
[2016-05-28] MEDS ORDERED: NALOXONE HCL 0.4 MG/ML AMP IV PRN (12:15)
[2016-05-28] MEDS ORDERED: ULTR50TA5 PO (12:20)
--- NOTE | 2016-05-28 12:43 | HHI.PR ---
Subjective Remarks Follow-up nausea. Improved but did not eat breakfast today. Also reminded I will be stopping morphine and she asked what medication she will get. Doesn't remember having an allergy to tramadol or Lortab. Requesting she be kept until Thursday because she doesn't have anybody at home. Discussed with RN to follow up with physical therapy Objective Vitals Vital Signs Date Time Temp Pulse Resp B/P Pulse Ox O2 Delivery O2 Flow Rate FiO2 05/28/16 12:08 98.0 76 18 138/74 96 05/28/16 08:07 98.4 84 18 84/ 97 05/28/16 04:00 98.3 82 16 121/79 97 05/28/16 00:57 98.3 85 18 138/68 96 05/27/16 20:03 98.6 87 16 117/73 96 05/27/16 16:00 97.8 85 16 154/87 98 I/O 05/27/16 05/27/16 05/27/16 05/28/16 05/28/16 05/28/16 06:59 14:59 22:59 06:59 14:59 22:59 Intake Total 790 ml 1361 ml 1272 ml 2012 ml Output Total 1380 ml 1000 ml 1360 ml Balance -590 ml 361 ml 1272 ml 652 ml Intake Oral 790 ml 900 ml 600 ml 1240 ml IV Total 461 ml 672 ml 772 ml Output Urine Total 1380 ml 1000 ml 1360 ml # Voids 3 # Bowel Movements 1 0 0 1 Result Diagram: 05/27/16 0617 05/28/16 0513 Objective Remarks GENERAL: Well-developed well-nourished. In no acute distress. SKIN: Warm and dry. No lesions noted. HEENT: Normocephalic. Pupils equal and round. Mucous membranes pink and moist. CARDIOVASCULAR: Regular rate and rhythm. No murmur appreciated. RESPIRATORY: No accessory muscle use. Clear to auscultation. Decreased breath sounds bilaterally. GASTROINTESTINAL: Abdomen soft, nontender, nondistended. Bowel sounds x4. MUSCULOSKELETAL: No obvious deformities. No clubbing or cyanosis. No edema. NEUROLOGICAL: Awake and alert. No focal neurological deficits. Moves upper and lower extremities spontaneously. Normal speech. No nystagmus PSYCHIATRIC: Appropriate mood and affect; insight and judgment normal. Nonfocal Procedures None A/P Problem List: (1) UTI (urinary tract infection) ICD Code: N39.0 Status: Acute (2) PNA (pneumonia) ICD Code: J18.9 Status: Acute (3) Tobacco abuse ICD Code: Z72.0 Status: Chronic Assessment and Plan 55-year-old female with a PMH of Anxiety, Stomach/Esophageal CA and Tobacco Abuse who presented with generalized fatigue and non-productive cough x4 days Sepsis: Tmax 102, tachycardia, WBC 2.9. Improved. Continue treatment with antibiotics as below. IVF. Check blood cultures negative to date. Improving nausea continue scheduled Reglan. Acidosis likely secondary to bicarbonate loss from vomiting. Improving. Continue IV fluids and bicarbonate. Patient refused bicarbonate counseled. Questionable RTA Vertigo. Nonfocal. Negative head CT. Improved. Neurochecks and fall precautions. Antivert as needed. PT evaluation UTI, suspect pyelonephritis: U/a w/ evidence of UTI . Urine culture with Escherichia coli switch IV Rocephin to Ceftin. CT Abd/Pelvis unremarkable for any significant intra-abdominal finding. PNA: CXR w/ RLL consolidation, personally reviewed. Influenza and urinary antigens negative. Status post azithromycin and Rocephin. DuoNeb, Mucinex, Symbicort. Repeat chest surgery 6 weeks Pancytopenia. DIC workup negative. Stable likely secondary to sepsis. Monitor CBC. Hypokalemia: Replace orally and add KCl to IV. Tobacco Abuse: Pt counseling. NicoDerm prn if needed. DVT Prophylaxis: SCD/Teds. Discharge Planning Discharge tolerating by mouth Nabil Ochoa MD May 28, 2016 12:42
[2016-05-28] MEDS ORDERED: SYMB160A INH (12:45)
[2016-05-28] MEDS ORDERED: SODI650T PO (12:45)
[2016-05-28] MEDS ORDERED: METO10TA PO (12:45)
--- NOTE | 2016-05-28 12:51 | HHI.DS ---
Discharge Summary Admission Date May 24, 2016 at 08:13 Discharge Date: May 28, 2016 Admitting Diagnosis right lower lobe pneumonia, pyelonephritis, gastroenteritis (1) UTI (urinary tract infection) ICD Code: N39.0 Diagnosis: Principal (2) PNA (pneumonia) ICD Code: J18.9 Diagnosis: Principal (3) Tobacco abuse ICD Code: Z72.0 Diagnosis: Principal Procedures None Brief History - From Admission This is a 55-year-old female with a PMH of Anxiety, Stomach/Esophageal CA and Tobacco Abuse who presented to the ER with complaints of generalized fatigue and non-productive cough x4 days w/ associated nausea/vomiting and diarrhea. Denies fever, SOB, chest pain or chills. Does report sick contacts w/ exposure to Influenza and PNA. On arrival, BP 126/65, HR 110, O2 sat 95% on RA, Afebrile. WBC normal. Platelets 108, previously 137 on 06/07/14. Chemistry essentially unremarkable except for GFR of 63. Lactic Acid 1.4. UA positive for UTI. CXR with consolidative infiltrate right lower lung. CT Abd/Pelvis w/ no dilatation of small or large bowel loops, RLL infiltrate. Influenza negative. S/p Urine Culture in ER and Rocephin/Zithro. CBC/BMP: 05/27/16 0617 05/28/16 0513 Significant Findings Laboratory Tests Test 05/26/16 05/27/16 05/28/16 05:40 06:17 05:13 White Blood Count 2.7 TH/MM3 2.7 TH/MM3 (4.0-11.0) (4.0-11.0) Red Blood Count 3.23 MIL/MM3 3.23 MIL/MM3 (4.00-5.30) (4.00-5.30) Hemoglobin 11.1 GM/DL 11.0 GM/DL (11.6-15.3) (11.6-15.3) Hematocrit 32.4 % 31.9 % (35.0-46.0) (35.0-46.0) Mean Corpuscular Volume 100.1 FL (80.0-100.0) Mean Corpuscular Hemoglobin 34.3 PG 34.1 PG (27.0-34.0) (27.0-34.0) Platelet Count 96 TH/MM3 111 TH/MM3 (150-450) (150-450) Mean Platelet Volume 11.2 FL 11.4 FL (7.0-11.0) (7.0-11.0) Monocytes (%) (Auto) 9.0 % (0.0-8.0) 10.8 % (0.0-8.0) Neutrophils # (Auto) 1.7 TH/MM3 1.5 TH/MM3 (1.8-7.7) (1.8-7.7) Lymphocytes # (Auto) 0.7 TH/MM3 0.8 TH/MM3 (1.0-4.8) (1.0-4.8) Platelet Estimate LOW (NORMAL) [place] Cells 2+ (NORMAL) Sodium Level 129 MEQ/L 129 MEQ/L 131 MEQ/L (136-145) (136-145) (136-145) Carbon Dioxide Level 13.9 MEQ/L 14.2 MEQ/L 18.5 MEQ/L (21.0-32.0) (21.0-32.0) (21.0-32.0) Blood Urea Nitrogen 2 MG/DL (7-18) 2 MG/DL (7-18) LESS THAN 1 MG/DL (7-18) Creatinine 0.35 MG/DL 0.33 MG/DL 0.35 MG/DL (0.50-1.00) (0.50-1.00) (0.50-1.00) Random Glucose 61 MG/DL 70 MG/DL (74-106) (74-106) Calcium Level 7.7 MG/DL 8.2 MG/DL 7.9 MG/DL (8.5-10.1) (8.5-10.1) (8.5-10.1) Anion Gap 17 MEQ/L (5-15) Imaging Last Impressions Head CT 05/27/16 0000 Signed Impressions: Service Date/Time: Friday, May 27, 2016 12:28 - CONCLUSION: No acute disease. Devon Johansen MD Chest X-Ray 05/22/16 0786 Signed Impressions: Service Date/Time: May 23:33 - CONCLUSION: 1. No consolidative infiltrate in the right lower lung without evidence of pleural effusion. 2. Air-containing oval structure superimposes upon the lower right heart silhouette, probably related to a bowel structure crossing the diaphragm. CT abdomen/pelvis has been ordered and this finding can be further assessed at that time. Gerson Lafleur MD Abdomen/Pelvis CT 05/22/16 2326 Signed Impressions: Service Date/Time: May 23:58 - CONCLUSION: 1. No dilated loops of small or large bowel. 2. P. air-containing structure seen on recent chest x-ray represents a gastric pull-through procedure. The infiltrate seen in the right lower lung is densely consolidative and contains air bronchograms. Gerson Lafelur MD PE at Discharge GENERAL: Well-developed well-nourished. In no acute distress. SKIN: Warm and dry. No lesions noted. HEENT: Normocephalic. Pupils equal and round. Mucous membranes pink and moist. CARDIOVASCULAR: Regular rate and rhythm. No murmur appreciated. RESPIRATORY: No accessory muscle use. Clear to auscultation. Decreased breath sounds bilaterally. GASTROINTESTINAL: Abdomen soft, nontender, nondistended. Bowel sounds x4. MUSCULOSKELETAL: No obvious deformities. No clubbing or cyanosis. No edema. NEUROLOGICAL: Awake and alert. No focal neurological deficits. Moves upper and lower extremities spontaneously. Normal speech. No nystagmus PSYCHIATRIC: Appropriate mood and affect; insight and judgment normal. Nonfocal Hospital Course 55-year-old female with a PMH of Anxiety, Stomach/Esophageal CA and Tobacco Abuse who presented with generalized fatigue and non-productive cough x4 days Sepsis: Tmax 102, tachycardia, WBC 2.9. Improved. Continue treatment with antibiotics as below. IVF. Check blood cultures negative to date. Improving nausea continue scheduled Reglan. Acidosis likely secondary to bicarbonate loss from vomiting. Improving. Continue IV fluids and bicarbonate. Patient refused bicarbonate counseled. Questionable RTA Vertigo. Nonfocal. Negative head CT. Improved. Neurochecks and fall precautions. Antivert as needed. PT evaluation UTI, suspect pyelonephritis: U/a w/ evidence of UTI . Urine culture with Escherichia coli switch IV Rocephin to Ceftin. CT Abd/Pelvis unremarkable for any significant intra-abdominal finding. PNA: CXR w/ RLL consolidation, personally reviewed. Influenza and urinary antigens negative. Status post azithromycin and Rocephin. DuoNeb, Mucinex, Symbicort. Repeat chest surgery 6 weeks Pancytopenia. DIC workup negative. Stable likely secondary to sepsis. Monitor CBC. Hypokalemia: Replace orally and add KCl to IV. Tobacco Abuse: Pt counseling. NicoDerm prn if needed. DVT Prophylaxis: SCD/Teds. Pt Condition on Discharge: Stable Discharge Disposition: Discharge Home Discharge Time: <= 30 minutes Discharge Instructions DIET: Follow Instructions for: As Tolerated, No Restrictions Activities you can perform: Regular-No Restrictions Activities to Avoid: Driving Follow up Referrals: PCP Follow-up - 1 Week New Orders: X-RAY CHEST PA & LAT - 6 Weeks New Medications: Ciprofloxacin (Cipro) 500 Mg Tab 500 MG PO BID Infection #12 Ref 0 TAB Budesonide-Formoterol Inh (Symbicort Inh) 160-4.5 Mcg/Act Aero 2 PUFF INH Q12HR Breathing Treatment #1 INHALER Metoclopramide (Metoclopramide) 10 Mg Tab 5 MG PO TIDAC PRN nausea #30 TAB Sodium Bicarbonate (Sodium Bicarbonate) 650 Mg Tab 650 MG PO BID Electrolyte Replacement #6 TAB Tramadol (Ultram) 50 Mg Tab 50 MG PO Q6HR PRN pain #28 TAB Continued Medications: Albuterol Neb (Albuterol Neb) 2.5 Mg/0.5 Ml Neb 2.5 MG NEB Q4HR NEB Note: The Albuterol Sulfate Inhalation Solution is concentrated and must be diluted. Read complete instructions carefully before using. PRN SOB/WHEEZING Nabil Malin MD May 28, 2016 12:51
[2016-05-28 16:31] VITALS: BP 147/83; PULSE 76; RESP 17; TEMP 98.1; O2SAT 95
[2016-05-28] MEDS: traMADol HCL 50 MG TAB PO PRN ×2 (17:28→22:16)
[2016-05-28 20:00] VITALS: BP 146/86; PULSE 88; RESP 18; TEMP 98.7; O2SAT 97
[2016-05-29] VITALS: BP 146/85; PULSE 82; RESP 16; TEMP 97.8; O2SAT 95
[2016-05-29] MEDS: NS + KCL 20 MEQ INJ 1,000 ML IV SCH ×2 (01:39→04:16)
[2016-05-29] MEDS: traMADol HCL 50 MG TAB PO PRN ×5 (03:46→23:02)
[2016-05-29] MEDS: ONDANSETRON HCL 4 MG/2 ML VIAL IVP PRN ×4 (04:16→23:02)
[2016-05-29 04:20] VITALS: BP 141/80; PULSE 79; RESP 18; TEMP 97.7; O2SAT 96
--- NOTE | 2016-05-29 05:36 | HHI.FF ---
Face to Face Verification Diagnosis: (1) UTI (urinary tract infection) (2) PNA (pneumonia) Physical Therapy Order: Evaluate and Treat, Improve ambulation, Strength and gait training I have seen patient Arpita Vila on 05/29/16. My clinical findings support the need for the requested home health care services because: Deconditioned w/ increased weakness Med compliance is questionable I certify that my clinical findings support that this patient is homebound because: Unsteady gait/balance Need for psychosocial assistance Nabil Ochoa MD May 29, 2016 05:36
[2016-05-29 08:02] VITALS: BP_SYST 123; BP_SYST 158; BP_SYST 162; BP_DIAS 81; BP_DIAS 87; BP_DIAS 89; PULSE 78; RESP 16; TEMP 97.8; O2SAT 97
[2016-05-29 08:29] LABS: AUTOMATED NEUTROPHIL # 1.3 TH/MM3 (1.8-7.7); BASOPHIL % 0.9 % (0.0-2.0); EOSINOPHIL # 0.1 TH/MM3 (0-0.4); EOSINOPHIL % 4.4 % (0.0-4.0); HEMATOCRIT 35.8 % (35.0-46.0); HEMO FLAGS DIFF FINAL; LYMPH % 34.6 % (9.0-44.0); MEAN CELL VOLUME 98.6 FL (80.0-100.0); MEAN CORPUSCULAR HEMOGLOBIN 32.7 PG (27.0-34.0); MEAN CORPUSCULAR HGB CONC 33.1 % (32.0-36.0); MONO % 14.4 % (0.0-8.0); NEUT % 45.7 % (16.0-70.0); PLATELET COUNT 141 TH/MM3 (150-450); RED BLOOD COUNT 3.63 MIL/MM3 (4.00-5.30); RED CELL DISTRIBUTION WIDTH 14.3 % (11.6-17.2); WHITE BLOOD COUNT 2.8 TH/MM3 (4.0-11.0)
[2016-05-29 08:41] LABS: ANION GAP 15 MEQ/L (5-15); BICARBONATE 15.9 MEQ/L (21.0-32.0); BLOOD UREA NITROGEN LESS THAN 1 MG/DL (7-18); CHLORIDE 99 MEQ/L (98-107); GLOMERULAR FILTRATION RATE 161 ML/MIN (>89); MAGNESIUM 1.7 MG/DL (1.5-2.5); POTASSIUM 3.8 MEQ/L (3.5-5.1); SODIUM (NA) 130 MEQ/L (136-145)
[2016-05-29] MEDS: guaiFENesin E.R. 600 MG TAB PO SCH ×2 (08:47→20:36)
[2016-05-29] MEDS: SODIUM BICARBONATE 650 MG TAB PO SCH ×2 (08:47→20:36)
[2016-05-29] MEDS: METOCLOPRAMIDE HCL 10 MG TAB PO SCH (08:48)
[2016-05-29] MEDS: CEFUROXIME AXETIL 500 MG TAB PO SCH ×2 (08:48→20:36)
[2016-05-29] MEDS: BUDESONIDE-FORMOTEROL 160/4.5 MCG INHALER INH SCH ×2 (08:49→20:37)
[2016-05-29] MEDS: SODIUM CHLORIDE 0.9% FLUSH 5 ML FLUSH FLUSH SCH ×2 (08:49→20:36)
--- NOTE | 2016-05-29 10:25 | HHI.PR ---
Subjective Remarks Follow-up orthostatics. Was dizzy during orthostatics complains of 3 loose stools today associated with crampy abdominal pain like having menses. Discussed with RN Objective Vitals Vital Signs Date Time Temp Pulse Resp B/P Pulse Ox O2 Delivery O2 Flow Rate FiO2 05/29/16 08:27 Room Air 05/29/16 04:20 Room Air 05/29/16 04:20 97.7 79 18 141/80 96 05/29/16 00:00 Room Air 05/29/16 00:00 97.8 82 16 146/85 95 05/28/16 20:00 98.7 88 18 146/86 97 05/28/16 20:00 Room Air 05/28/16 16:31 98.1 76 17 147/83 95 05/28/16 12:08 98.0 76 18 138/74 96 I/O 05/28/16 05/28/16 05/28/16 05/29/16 05/29/16 05/29/16 07:00 15:00 23:00 07:00 15:00 23:00 Intake Total 2012 ml 2957 ml 477 ml 947 ml Output Total 1360 ml 6 ml Balance 652 ml 2957 ml 477 ml 941 ml Intake Oral 1240 ml 960 ml 550 ml IV Total 772 ml 1997 ml 477 ml 397 ml Output Urine Total 1360 ml 6 ml # Voids 6 # Bowel Movements 1 0 0 Result Diagram: 05/29/16 0706 05/29/16 0706 Imaging Last Impressions Head CT 05/27/16 0000 Signed Impressions: Service Date/Time: Friday, May 27, 2016 12:28 - CONCLUSION: No acute disease. Devon Johansen MD Chest X-Ray 05/22/162325 Signed Impressions: Service Date/Time: May 23:33 - CONCLUSION: 1. No consolidative infiltrate in the right lower lung without evidence of pleural effusion. 2. Air-containing oval structure superimposes upon the lower right heart silhouette, probably related to a bowel structure crossing the diaphragm. CT abdomen/pelvis has been ordered and this finding can be further assessed at that time. Gerson Lafleur MD Abdomen/Pelvis CT 05/22/162325 Signed Impressions: Service Date/Time: May 23:58 - CONCLUSION: 1. No dilated loops of small or large bowel. 2. P. air-containing structure seen on recent chest x-ray represents a gastric pull-through procedure. The infiltrate seen in the right lower lung is densely consolidative and contains air bronchograms. Gerson Lafleur MD Objective Remarks GENERAL: Well-developed well-nourished. In no acute distress. No signs of dehydration SKIN: Warm and dry. No lesions noted. HEENT: Normocephalic. Pupils equal and round. Mucous membranes pink and moist. CARDIOVASCULAR: Regular rate and rhythm. No murmur appreciated. RESPIRATORY: No accessory muscle use. Clear to auscultation. Decreased breath sounds bilaterally. GASTROINTESTINAL: Abdomen soft, nontender, nondistended. Bowel sounds x4. MUSCULOSKELETAL: No obvious deformities. No clubbing or cyanosis. No edema. NEUROLOGICAL: Awake and alert. No focal neurological deficits. Moves upper and lower extremities spontaneously. Normal speech. No nystagmus PSYCHIATRIC: Appropriate mood and affect; insight and judgment normal. Nonfocal Procedures None A/P Problem List: (1) UTI (urinary tract infection) ICD Code: N39.0 Status: Acute (2) PNA (pneumonia) ICD Code: J18.9 Status: Acute (3) Tobacco abuse ICD Code: Z72.0 Status: Chronic Assessment and Plan 55-year-old female with a PMH of Anxiety, Stomach/Esophageal CA and Tobacco Abuse who presented with generalized fatigue and non-productive cough x4 days Sepsis: Tmax 102, tachycardia, WBC 2.9. Improved. Continue treatment with antibiotics as below. Blood cultures negative to date. Acidosis likely secondary to bicarbonate loss from vomiting and now diarrhea. Slightly worse today. Increase IV fluids and continue bicarbonate. Patient refused bicarbonate counseled. Questionable RTA Diarrhea. Discontinue Reglan and start Lactinex check C. difficile. Repeat BMP and CBC in the morning. Orthostasis secondary to above. Nonfocal. Negative head CT. Improved. Neurochecks and fall precautions. Antivert as needed. PT evaluation UTI, suspect pyelonephritis: U/a w/ evidence of UTI . Urine culture with Escherichia coli switch IV Rocephin to Ceftin. CT Abd/Pelvis unremarkable for any significant intra-abdominal finding. PNA: CXR w/ RLL consolidation, personally reviewed. Influenza and urinary antigens negative. Status post azithromycin and Rocephin. DuoNeb, Mucinex, Symbicort. Repeat chest surgery 6 weeks Pancytopenia. DIC workup negative. Stable likely secondary to sepsis. Monitor CBC. Hypokalemia: Replace orally and add KCl to IV. Tobacco Abuse: Pt counseling. NicoDerm prn if needed. DVT Prophylaxis: SCD/Teds. Discharge Planning Not ready for discharge Nabil Ochoa MD May 29, 2016 10:24
[2016-05-29 12:03] VITALS: BP 147/89; PULSE 84; RESP 16; TEMP 98.1; O2SAT 96
[2016-05-29] MEDS: LACTOBACILLUS ACIDOPHILUS TAB PO SCH ×2 (13:03→17:17)
[2016-05-29 16:03] VITALS: BP 151/81; PULSE 114; RESP 16; TEMP 97.6; O2SAT 97
[2016-05-29 19:03] LABS: C. DIFF EPI 027 PRESUMPTIVE NEGATIVE (NEGATIVE); C. DIFF TOXIN PCR NEGATIVE (NEGATIVE)
[2016-05-29 20:00] VITALS: BP_SYST 136; BP_SYST 160; BP_SYST 164; BP_DIAS 80; BP_DIAS 86; BP_DIAS 91; PULSE 76; RESP 18; TEMP 97.8; O2SAT 98
[2016-05-30] VITALS: BP 158/82; PULSE 80; RESP 18; TEMP 98; O2SAT 97
[2016-05-30 04:00] VITALS: BP 133/83; PULSE 77; RESP 18; TEMP 97.4; O2SAT 97
[2016-05-30] MEDS: ONDANSETRON HCL 4 MG/2 ML VIAL IVP PRN ×3 (05:09→17:33)
[2016-05-30] MEDS: traMADol HCL 50 MG TAB PO PRN ×5 (05:09→22:18)
[2016-05-30 05:51] LABS: AUTOMATED NEUTROPHIL # 1.8 TH/MM3 (1.8-7.7); BASOPHIL % 0.5 % (0.0-2.0); EOSINOPHIL # 0.1 TH/MM3 (0-0.4); EOSINOPHIL % 4.1 % (0.0-4.0); HEMATOCRIT 32.6 % (35.0-46.0); HEMO FLAGS DIFF FINAL; LYMPH % 29.9 % (9.0-44.0); MEAN CELL VOLUME 98.4 FL (80.0-100.0); MEAN CORPUSCULAR HEMOGLOBIN 33.3 PG (27.0-34.0); MEAN CORPUSCULAR HGB CONC 33.8 % (32.0-36.0); MONO % 14.5 % (0.0-8.0); PLATELET COUNT 153 TH/MM3 (150-450); RED BLOOD COUNT 3.31 MIL/MM3 (4.00-5.30); RED CELL DISTRIBUTION WIDTH 14.2 % (11.6-17.2); WHITE BLOOD COUNT 3.5 TH/MM3 (4.0-11.0)
[2016-05-30 06:07] LABS: ANION GAP 14 MEQ/L (5-15); BICARBONATE 18.2 MEQ/L (21.0-32.0); BLOOD UREA NITROGEN LESS THAN 1 MG/DL (7-18); CHLORIDE 100 MEQ/L (98-107); GLOMERULAR FILTRATION RATE 222 ML/MIN (>89); MAGNESIUM 1.7 MG/DL (1.5-2.5); POTASSIUM 3.8 MEQ/L (3.5-5.1); SODIUM (NA) 132 MEQ/L (136-145)
[2016-05-30 08:03] VITALS: BP_SYST 133; BP_SYST 150; BP_DIAS 71; BP_DIAS 89; PULSE 78; RESP 16; TEMP 97.9; O2SAT 96
[2016-05-30] MEDS: NS + KCL 20 MEQ INJ 1,000 ML IV SCH (08:13)
[2016-05-30] MEDS: CEFUROXIME AXETIL 500 MG TAB PO SCH ×2 (08:14→20:20)
[2016-05-30] MEDS: BUDESONIDE-FORMOTEROL 160/4.5 MCG INHALER INH SCH ×2 (08:14→20:22)
[2016-05-30] MEDS: SODIUM BICARBONATE 650 MG TAB PO SCH ×2 (08:14→20:20)
[2016-05-30] MEDS: guaiFENesin E.R. 600 MG TAB PO SCH ×2 (08:14→20:21)
[2016-05-30] MEDS: SODIUM CHLORIDE 0.9% FLUSH 5 ML FLUSH FLUSH SCH ×2 (08:14→20:21)
[2016-05-30] MEDS: LACTOBACILLUS ACIDOPHILUS TAB PO SCH ×3 (08:14→17:33)
[2016-05-30] MEDS: SODIUM CHLOR 0.9% 1000 ML INJ 1,000 ML IV SCH ×3 (09:00→23:50)
[2016-05-30] MEDS: MIDODRINE 5 MG TAB PO SCH ×2 (11:48→17:33)
[2016-05-30 12:02] VITALS: BP 153/89; PULSE 76; RESP 16; TEMP 97.6; O2SAT 97
[2016-05-30 16:04] VITALS: BP 160/76; PULSE 72; RESP 16; TEMP 98.1; O2SAT 97
[2016-05-30 20:02] VITALS: BP 157/81; PULSE 74; RESP 16; TEMP 97.4; O2SAT 99
[2016-05-31] VITALS (10 sets, daily range): BP systolic 119–193; BP diastolic 78–101; PULSE 64–107; RESP 16–18; TEMP 97.4–97.9; O2SAT 95–99
[2016-05-31] MEDS: traMADol HCL 50 MG TAB PO PRN ×4 (02:54→20:27)
[2016-05-31] MEDS: MIDODRINE 5 MG TAB PO SCH ×3 (05:50→16:16)
[2016-05-31] MEDS: ONDANSETRON HCL 4 MG/2 ML VIAL IVP PRN ×4 (05:56→22:40)
[2016-05-31] MEDS: SODIUM CHLOR 0.9% 1000 ML INJ 1,000 ML IV SCH ×2 (08:17→16:20)
[2016-05-31] MEDS: SODIUM BICARBONATE 650 MG TAB PO SCH ×2 (08:17→20:29)
[2016-05-31] MEDS: CEFUROXIME AXETIL 500 MG TAB PO SCH ×2 (08:19→20:28)
[2016-05-31] MEDS: BUDESONIDE-FORMOTEROL 160/4.5 MCG INHALER INH SCH ×2 (08:19→20:29)
[2016-05-31] MEDS: guaiFENesin E.R. 600 MG TAB PO SCH ×2 (08:20→20:27)
[2016-05-31] MEDS: LACTOBACILLUS ACIDOPHILUS TAB PO SCH ×3 (08:20→16:16)
[2016-05-31] MEDS: SODIUM CHLORIDE 0.9% FLUSH 5 ML FLUSH FLUSH SCH ×2 (08:20→20:32)
--- NOTE | 2016-05-31 08:34 | HHI.PR ---
Subjective Remarks Late entry, this progress note is for 05/30/16. Still orthostatic, lightheaded when standing, still with diarrhea, C diff negative Objective Vitals Vital Signs Date Time Temp Pulse Resp B/P Pulse Ox O2 Delivery O2 Flow Rate FiO2 05/31/16 08:17 97.7 71 18 160/95 95 05/31/16 04:00 Room Air 05/31/16 04:00 97.7 72 16 153/96 98 05/31/16 00:02 97.6 73 16 165/88 98 05/31/16 00:00 Room Air 05/30/16 20:30 Room Air 05/30/16 20:02 97.4 74 16 157/81 99 05/30/16 16:04 98.1 72 16 160/76 97 05/30/16 12:02 97.6 76 16 153/89 97 I/O 05/30/16 05/30/16 05/30/16 05/31/16 05/31/16 05/31/16 07:00 15:00 23:00 07:00 15:00 23:00 Intake Total 838 ml 1380 ml 1635 ml 983 ml Balance 838 ml 1380 ml 1635 ml 983 ml Intake Oral 240 ml 380 ml 360 ml IV Total 598 ml 1000 ml 1275 ml 983 ml # Voids 1 5 2 # Bowel Movements 0 1 1 Result Diagram: 05/30/16 0515 05/30/16 0515 Objective Remarks GENERAL: Well-developed well-nourished. In no acute distress. No signs of dehydration SKIN: Warm and dry. No lesions noted. HEENT: Normocephalic. Pupils equal and round. Mucous membranes pink and moist. CARDIOVASCULAR: Regular rate and rhythm. No murmur appreciated. RESPIRATORY: No accessory muscle use. Clear to auscultation. Decreased breath sounds bilaterally. GASTROINTESTINAL: Abdomen soft, nontender, nondistended. Bowel sounds x4. NEUROLOGICAL: Awake and alert and oriented 3 No focal neurological deficits. Moves upper and lower extremities spontaneously. Normal speech. No nystagmus Procedures None A/P Problem List: (1) UTI (urinary tract infection) ICD Code: N39.0 Status: Acute (2) PNA (pneumonia) ICD Code: J18.9 Status: Acute (3) Tobacco abuse ICD Code: Z72.0 Status: Chronic Assessment and Plan 55-year-old female with a PMH of Anxiety, Stomach/Esophageal CA and Tobacco Abuse who presented with generalized fatigue and non-productive cough x4 days Sepsis: Tmax 102, tachycardia, WBC 2.9. Improved. . Blood cultures negative to date. Acidosis likely secondary to bicarbonate loss from vomiting and now diarrhea. Patient refused bicarbonate counseled. Questionable RTA Diarrhea. Discontinue Reglan, Lactinex, C. difficile negative. Repeat BMP and CBC in the morning. Orthostasis secondary to above. Nonfocal. Negative head CT. Improved. Neurochecks and fall precautions. Antivert as needed. PT evaluation UTI, suspect pyelonephritis: U/a w/ evidence of UTI . Urine culture with Escherichia coli switch IV Rocephin to Ceftin. CT Abd/Pelvis unremarkable for any significant intra-abdominal finding. PNA: CXR w/ RLL consolidation, personally reviewed. Influenza and urinary antigens negative. Status post azithromycin and Rocephin. DuoNeb, Mucinex, Symbicort. Repeat chest x-ray in 6 weeks. Pancytopenia. DIC workup negative. Stable likely secondary to sepsis. Monitor CBC. Resolved. Hypokalemia: Resolved Tobacco Abuse: Pt counseling. NicoDerm prn if needed. DVT Prophylaxis: SCD/Teds. Brian Che MD May 31, 2016 08:34
--- NOTE | 2016-05-31 09:03 | HHI.PR ---
Subjective Remarks Follow-up for orthostatics No further dizziness or lightheadedness, bowel movements are normal, no diarrhea. No headache. No cough. Objective Vitals Vital Signs Date Time Temp Pulse Resp B/P Pulse Ox O2 Delivery O2 Flow Rate FiO2 05/31/16 08:17 97.7 71 18 160/95 95 05/31/16 04:00 Room Air 05/31/16 04:00 97.7 72 16 153/96 98 05/31/16 00:02 97.6 73 16 165/88 98 05/31/16 00:00 Room Air 05/30/16 20:30 Room Air 05/30/16 20:02 97.4 74 16 157/81 99 05/30/16 16:04 98.1 72 16 160/76 97 05/30/16 12:02 97.6 76 16 153/89 97 I/O 05/30/16 05/30/16 05/30/16 05/31/16 05/31/16 05/31/16 07:00 15:00 23:00 07:00 15:00 23:00 Intake Total 838 ml 1380 ml 1635 ml 983 ml Balance 838 ml 1380 ml 1635 ml 983 ml Intake Oral 240 ml 380 ml 360 ml IV Total 598 ml 1000 ml 1275 ml 983 ml # Voids 1 5 2 # Bowel Movements 0 1 1 Result Diagram: 05/30/1651405/30/16 0515 Objective Remarks GENERAL: Well-developed well-nourished. In no acute distress. No signs of dehydration SKIN: Warm and dry. No lesions noted. HEENT: Normocephalic. Pupils equal and round. Mucous membranes pink and moist. CARDIOVASCULAR: Regular rate and rhythm. No murmur appreciated. RESPIRATORY: No accessory muscle use. Clear to auscultation. Decreased breath sounds bilaterally. GASTROINTESTINAL: Abdomen soft, nontender, nondistended. Bowel sounds x4. NEUROLOGICAL: Awake and alert and oriented 3 No focal neurological deficits. Moves upper and lower extremities spontaneously. Normal speech. No nystagmus Procedures None A/P Problem List: (1) UTI (urinary tract infection) ICD Code: N39.0 Status: Acute (2) PNA (pneumonia) ICD Code: J18.9 Status: Acute (3) Tobacco abuse ICD Code: Z72.0 Status: Chronic Assessment and Plan 55-year-old female with a PMH of Anxiety, Stomach/Esophageal CA and Tobacco Abuse who presented with generalized fatigue and non-productive cough x4 days Sepsis: Tmax 102, tachycardia, WBC 2.9. Improved. . Blood cultures negative to date. Acidosis likely secondary to bicarbonate loss from vomiting and now diarrhea. Patient refused bicarbonate counseled. Questionable RTA Diarrhea. Discontinue Reglan, Lactinex, C. difficile negative. Resolved. Orthostasis secondary to above. Nonfocal. Negative head CT. Improved. Neurochecks and fall precautions. Antivert as needed. PT evaluation, continue midodrine. UTI, suspect pyelonephritis: U/a w/ evidence of UTI . Urine culture with Escherichia coli switch IV Rocephin to Ceftin. CT Abd/Pelvis unremarkable for any significant intra-abdominal finding. PNA: CXR w/ RLL consolidation, personally reviewed. Influenza and urinary antigens negative. Status post azithromycin and Rocephin. DuoNeb, Mucinex, Symbicort. Repeat chest x-ray in 6 weeks. Pancytopenia. DIC workup negative. Stable likely secondary to sepsis. Monitor CBC. Resolved. Hypokalemia: Resolved Tobacco Abuse: Pt counseling. NicoDerm prn if needed. DVT Prophylaxis: SCD/Teds. Discharge Planning Discharge today if Orthostatics negative Brian Che MD May 31, 2016 09:02
[2016-05-31] MEDS ORDERED: MIDO5TAB PO (09:05)
[2016-05-31] MEDS ORDERED: MECL-62 PO (09:05)
[2016-05-31] MEDS ORDERED: CEFT500T3 PO (09:05)
[2016-05-31] MEDS ORDERED: LACT PO (09:05)
--- NOTE | 2016-05-31 09:06 | HHI.DS ---
Discharge Summary Admission Date May 24, 2016 at 08:13 Discharge Date: Jun 04, 2016 Admitting Diagnosis right lower lobe pneumonia, pyelonephritis, gastroenteritis (1) UTI (urinary tract infection) ICD Code: N39.0 Diagnosis: Principal (2) PNA (pneumonia) ICD Code: J18.9 Diagnosis: Principal (3) Tobacco abuse ICD Code: Z72.0 Diagnosis: Principal (4) Orthostatic hypotension ICD Code: I95.1 Procedures None Brief History - From Admission This is a 55-year-old female with a PMH of Anxiety, Stomach/Esophageal CA and Tobacco Abuse who presented to the ER with complaints of generalized fatigue and non-productive cough x4 days w/ associated nausea/vomiting and diarrhea. Denies fever, SOB, chest pain or chills. Does report sick contacts w/ exposure to Influenza and PNA. On arrival, BP 126/65, HR 110, O2 sat 95% on RA, Afebrile. WBC normal. Platelets 108, previously 137 on 06/07/14. Chemistry essentially unremarkable except for GFR of 63. Lactic Acid 1.4. UA positive for UTI. CXR with consolidative infiltrate right lower lung. CT Abd/Pelvis w/ no dilatation of small or large bowel loops, RLL infiltrate. Influenza negative. S/p Urine Culture in ER and Rocephin/Zithro. CBC/BMP: 05/30/16 0515 05/30/16 0515 Significant Findings Laboratory Tests Test 05/29/16 05/30/16 07:06 05:15 White Blood Count 2.8 TH/MM3 3.5 TH/MM3 (4.0-11.0) (4.0-11.0) Red Blood Count 3.63 MIL/MM3 3.31 MIL/MM3 (4.00-5.30) (4.00-5.30) Platelet Count 141 TH/MM3 (150-450) Mean Platelet Volume 11.7 FL 11.2 FL (7.0-11.0) (7.0-11.0) Monocytes (%) (Auto) 14.4 % 14.5 % (0.0-8.0) (0.0-8.0) Eosinophils (%) (Auto) 4.4 % (0.0-4.0) 4.1 % (0.0-4.0) Neutrophils # (Auto) 1.3 TH/MM3 (1.8-7.7) Sodium Level 130 MEQ/L 132 MEQ/L (136-145) (136-145) Carbon Dioxide Level 15.9 MEQ/L 18.2 MEQ/L (21.0-32.0) (21.0-32.0) Blood Urea Nitrogen LESS THAN 1 LESS THAN 1 MG/DL (7-18) MG/DL (7-18) Creatinine 0.41 MG/DL 0.31 MG/DL (0.50-1.00) (0.50-1.00) Random Glucose 70 MG/DL (74-106) Calcium Level 8.4 MG/DL 8.0 MG/DL (8.5-10.1) (8.5-10.1) Hemoglobin 11.0 GM/DL (11.6-15.3) Hematocrit 32.6 % (35.0-46.0) PE at Discharge GENERAL: Well-developed well-nourished. In no acute distress. No signs of dehydration SKIN: Warm and dry. No lesions noted. HEENT: Normocephalic. Pupils equal and round. Mucous membranes pink and moist. CARDIOVASCULAR: Regular rate and rhythm. No murmur appreciated. RESPIRATORY: No accessory muscle use. Clear to auscultation. Decreased breath sounds bilaterally. GASTROINTESTINAL: Abdomen soft, nontender, nondistended. Bowel sounds x4. NEUROLOGICAL: Awake and alert and oriented 3 No focal neurological deficits. Moves upper and lower extremities spontaneously. Normal speech. No nystagmus Hospital Course 55-year-old female with a PMH of Anxiety, Stomach/Esophageal CA and Tobacco Abuse who presented with generalized fatigue and non-productive cough x4 days. Upon admission, the patient was found to have pneumonia and urinary tract infection. The patient was initially started on ceftriaxone and azithromycin. She was also septic. Urine culture grew Escherichia coli.CT Abd/Pelvis unremarkable for any significant intra-abdominal finding. Chest x-ray showed right lower lobe consolidation. Influenza and urinary antigens negative. Status post azithromycin, ceftriaxone was switched to Ceftin and patient finished her course. She'll continue Symbicort on discharge. After patient was better, she became orthostatic, midodrine was started without any help, fludrocortisone was added. Permissive hypertension was explained to the patient and risks were also explained. After a few days, or to status improved with resolution of symptoms. She will be discharged on fludrocortisone and low- dose midodrine to follow-up with the community clinic. Case management helping with establishing care. She had hypokalemia and hypomagnesemia which were replaced and addressed prior to discharge. Pt Condition on Discharge: Stable Discharge Disposition: Discharge Home Discharge Time: > 30 minutes Discharge Instructions DIET: Follow Instructions for: As Tolerated, No Restrictions Activities you can perform: Regular-No Restrictions Activities to Avoid: Driving Follow up Referrals: PCP Follow-up - 1 Week New Medications: Budesonide-Formoterol Inh (Symbicort Inh) 160-4.5 Mcg/Act Aero 2 PUFF INH Q12HR Breathing Treatment #1 INHALER Dicyclomine (Bentyl) 20 Mg Tab 20 MG PO TID PRN abdominal cramping #20 TAB Fludrocortisone (Fludrocortisone) 0.1 Mg Tab 0.1 MG PO DAILY orthostatic #21 TAB Lactobacillus Acidophilus (Acidophilus/l-Sporogenes) 1 Tab Tab 1 TAB PO TID diarrhea #14 TAB Meclizine (Meclizine) 25 Mg Tab 25 MG PO Q6H PRN vertigo #20 TAB Midodrine (Midodrine) 5 Mg Tab 5 MG PO TID@07,12,17 orthostatics #30 TAB Midodrine (Midodrine) 5 Mg Tab 5 MG PO TID@07,12,17 orthostatic Days 21 TAB Sodium Bicarbonate (Sodium Bicarbonate) 650 Mg Tab 650 MG PO BID Electrolyte Replacement #6 TAB Continued Medications: Albuterol Neb (Albuterol Neb) 2.5 Mg/0.5 Ml Neb 2.5 MG NEB Q4HR NEB Note: The Albuterol Sulfate Inhalation Solution is concentrated and must be diluted. Read complete instructions carefully before using. PRN SOB/WHEEZING Brian Cruz MD May 31, 2016 09:06 650 MG PO BID Electrolyte Replacement #6 TAB Tramadol (Ultram) 50 Mg Tab 50 MG PO Q6HR PRN pain #28 TAB Continued Medications: Albuterol Neb (Albuterol Neb) 2.5 Mg/0.5 Ml Neb 2.5 MG NEB Q4HR NEB Note: The Albuterol Sulfate Inhalation Solution is concentrated and must be diluted. Read complete instructions carefully before using. PRN SOB/WHEEZING Brian Cruz MD May 31, 2016 09:06
[2016-05-31] MEDS: FLUDROCORTISONE ACETATE 0.1 MG TAB PO SCH (11:43)
[2016-06-01] VITALS (7 sets, daily range): BP systolic 121–186; BP diastolic 25–104; PULSE 68–94; RESP 18–19; TEMP 97.4–97.9; O2SAT 97–98
[2016-06-01] MEDS: traMADol HCL 50 MG TAB PO PRN ×5 (01:29→19:36)
[2016-06-01] MEDS: SODIUM CHLOR 0.9% 1000 ML INJ 1,000 ML IV SCH ×3 (01:30→17:59)
[2016-06-01] MEDS: ONDANSETRON HCL 4 MG/2 ML VIAL IVP PRN ×3 (05:12→17:59)
[2016-06-01] MEDS: MIDODRINE 5 MG TAB PO SCH ×3 (06:47→17:58)
[2016-06-01] MEDS: guaiFENesin E.R. 600 MG TAB PO SCH ×2 (09:00→21:41)
[2016-06-01] MEDS: SODIUM CHLORIDE 0.9% FLUSH 5 ML FLUSH FLUSH SCH ×2 (09:00→21:41)
[2016-06-01] MEDS: LACTOBACILLUS ACIDOPHILUS TAB PO SCH ×3 (10:28→17:58)
[2016-06-01] MEDS: CEFUROXIME AXETIL 500 MG TAB PO SCH ×2 (10:28→21:40)
[2016-06-01] MEDS: FLUDROCORTISONE ACETATE 0.1 MG TAB PO SCH (10:28)
[2016-06-01] MEDS: SODIUM BICARBONATE 650 MG TAB PO SCH ×2 (10:29→21:41)
[2016-06-01] MEDS: BUDESONIDE-FORMOTEROL 160/4.5 MCG INHALER INH SCH ×2 (10:36→21:41)
--- NOTE | 2016-06-01 10:56 | HHI.PR ---
Subjective Remarks Follow-up for orthostatics Patient still feels dizzy and lightheaded when she stands up, shortness of breath about the same, no nausea or vomiting. Pain is about the same comanagement. Refuses to walk with physical therapy because she gets dizzy Objective Vitals Vital Signs Date Time Temp Pulse Resp B/P Pulse Ox O2 Delivery O2 Flow Rate FiO2 06/01/16 08:16 97.9 79 18 174/86 97 06/01/16 04:00 97.6 73 18 171/85 98 06/01/16 00:00 97.6 73 18 184/25 97 05/31/16 20:05 153/88 05/31/16 20:00 97.9 64 18 193/101 96 05/31/16 19:45 Room Air 05/31/16 16:08 97.7 68 18 162/92 97 05/31/16 12:16 97.4 80 18 170/96 99 I/O 05/31/16 05/31/16 05/31/16 06/01/16 06/01/16 06/01/16 07:00 15:00 23:00 07:00 15:00 23:00 Intake Total 983 ml 480 ml 240 ml 240 ml Balance 983 ml 480 ml 240 ml 240 ml Intake Oral 480 ml 240 ml 240 ml IV Total 983 ml # Voids 5 1 2 # Bowel Movements 0 0 0 Result Diagram: 05/30/1615 05/30/1615 Objective Remarks GENERAL: Well-developed well-nourished. In no acute distress. No signs of dehydration, appears sick. SKIN: Warm and dry. No lesions noted. HEENT: Normocephalic. Pupils equal and round. Mucous membranes pink and moist. CARDIOVASCULAR: Regular rate and rhythm. No murmur appreciated. RESPIRATORY: No accessory muscle use. Clear to auscultation. Decreased breath sounds bilaterally. GASTROINTESTINAL: Abdomen soft, nontender, nondistended. Bowel sounds x4. NEUROLOGICAL: Awake and alert and oriented 3 No focal neurological deficits. Moves upper and lower extremities spontaneously. Normal speech. No nystagmus Procedures None A/P Problem List: (1) UTI (urinary tract infection) ICD Code: N39.0 Status: Acute (2) PNA (pneumonia) ICD Code: J18.9 Status: Acute (3) Tobacco abuse ICD Code: Z72.0 Status: Chronic Assessment and Plan 55-year-old female with a PMH of Anxiety, Stomach/Esophageal CA and Tobacco Abuse who presented with generalized fatigue and non-productive cough x4 days Sepsis: Tmax 102, tachycardia, WBC 2.9. Improved. . Blood cultures negative to date. Acidosis likely secondary to bicarbonate loss from vomiting and now diarrhea. Patient refused bicarbonate counseled. Questionable RTA Diarrhea. Discontinue Reglan, Lactinex, C. difficile negative. Resolved. Orthostasis secondary to above. Nonfocal. Negative head CT. Improved. Neurochecks and fall precautions. Antivert as needed. PT evaluation, continue midodrine, start fludrocortisone, explained to patient about permissive hypertension to give her orthostasis. Encourage physical therapy daily. Recheck CBC and BMP tomorrow. UTI, suspect pyelonephritis: U/a w/ evidence of UTI . Urine culture with Escherichia coli switch IV Rocephin to Ceftin, continue this for now. CT Abd/ Pelvis unremarkable for any significant intra-abdominal finding. PNA: CXR w/ RLL consolidation, personally reviewed. Influenza and urinary antigens negative. Status post azithromycin and Rocephin. DuoNeb, Mucinex, Symbicort. Repeat chest x-ray in 6 weeks. Pancytopenia. DIC workup negative. Stable likely secondary to sepsis. Monitor CBC. Resolved. Hypokalemia: Resolved Tobacco Abuse: Pt counseling. NicoDerm prn if needed. DVT Prophylaxis: SCD/Teds. Discharge Planning Discharge today if Orthostatics negative Brian Che MD Jun 01, 2016 10:55
[2016-06-01] MEDS ORDERED: PROCHLORPERAZINE INJ 10 MG/2 ML VIAL IVS ONE (22:00)
[2016-06-02] VITALS: BP 172/84; PULSE 81; RESP 18; TEMP 97.4; O2SAT 97
[2016-06-02] MEDS: SODIUM CHLOR 0.9% 1000 ML INJ 1,000 ML IV SCH ×4 (01:00→16:54)
[2016-06-02] MEDS: ONDANSETRON HCL 4 MG/2 ML VIAL IVP PRN ×2 (02:00→10:03)
[2016-06-02] MEDS: traMADol HCL 50 MG TAB PO PRN ×3 (02:01→20:23)
[2016-06-02 04:00] VITALS: BP 161/87; PULSE 77; RESP 18; TEMP 98.2; O2SAT 98
[2016-06-02] MEDS: MIDODRINE 5 MG TAB PO SCH ×3 (06:08→16:53)
[2016-06-02 06:59] LABS: AUTOMATED NEUTROPHIL # 2.7 TH/MM3 (1.8-7.7); BASOPHIL % 0.3 % (0.0-2.0); EOSINOPHIL # 0.1 TH/MM3 (0-0.4); HEMATOCRIT 31.3 % (35.0-46.0); HEMO FLAGS DIFF FINAL; LYMPH % 25.3 % (9.0-44.0); LYMPHOCYTE # 1.2 TH/MM3 (1.0-4.8); MEAN CELL VOLUME 97.3 FL (80.0-100.0); MEAN CORPUSCULAR HEMOGLOBIN 33.1 PG (27.0-34.0); MONO % 12.2 % (0.0-8.0); NEUT % 59.2 % (16.0-70.0); PLATELET COUNT 186 TH/MM3 (150-450); RED BLOOD COUNT 3.22 MIL/MM3 (4.00-5.30); RED CELL DISTRIBUTION WIDTH 13.8 % (11.6-17.2); WHITE BLOOD COUNT 4.6 TH/MM3 (4.0-11.0)
[2016-06-02 07:17] LABS: ANION GAP 20 MEQ/L (5-15); BICARBONATE 19.1 MEQ/L (21.0-32.0); BLOOD UREA NITROGEN LESS THAN 1 MG/DL (7-18); CHLORIDE 96 MEQ/L (98-107); GLOMERULAR FILTRATION RATE 187 ML/MIN (>89); MAGNESIUM 1.4 MG/DL (1.5-2.5); SODIUM (NA) 135 MEQ/L (136-145)
[2016-06-02 07:25] LABS: POTASSIUM 2.5 MEQ/L (3.5-5.1)
[2016-06-02 08:00] VITALS: BP 174/84; PULSE 71; RESP 20; TEMP 98.1; O2SAT 97
[2016-06-02] MEDS ORDERED: POTASSIUM CHLORIDE 20 MEQ CONTROLLED RELEASE TAB PO ONE (09:00)
[2016-06-02] MEDS: SODIUM CHLORIDE 0.9% FLUSH 5 ML FLUSH FLUSH SCH ×2 (09:00→20:24)
[2016-06-02] MEDS: guaiFENesin E.R. 600 MG TAB PO SCH ×2 (09:10→20:23)
[2016-06-02] MEDS: SODIUM BICARBONATE 650 MG TAB PO SCH ×2 (09:10→20:23)
[2016-06-02] MEDS: FLUDROCORTISONE ACETATE 0.1 MG TAB PO SCH (09:10)
[2016-06-02] MEDS: LACTOBACILLUS ACIDOPHILUS TAB PO SCH ×3 (09:10→16:53)
[2016-06-02] MEDS: CEFUROXIME AXETIL 500 MG TAB PO SCH ×2 (09:10→20:23)
[2016-06-02] MEDS: POTASSIUM CHLOR 20 MEQ PREMIX 100 ML IV SCH ×2 (09:11→11:43)
[2016-06-02] MEDS: BUDESONIDE-FORMOTEROL 160/4.5 MCG INHALER INH SCH ×2 (09:12→20:23)
--- NOTE | 2016-06-02 10:29 | HHI.PR ---
Subjective Remarks Follow-up for poor oral intake, nausea, orthostasis. RN at bedside. The patient reports that she's been having poor oral intake due to nausea and dry heaving. No vomiting. No further diarrhea, normal BM today. She reports generalized abdominal cramping. She states the Compazine last night helped the nausea. She states she's been up to use the bedside commode a few times, still feels a little dizzy, but has been getting up slowly. Objective Vitals Vital Signs Date Time Temp Pulse Resp B/P Pulse Ox O2 Delivery O2 Flow Rate FiO2 06/02/16 08:00 98.1 71 20 174/84 97 06/02/16 04:00 98.2 77 18 161/87 98 06/02/16 00:00 97.4 81 18 172/84 97 06/01/16 20:00 97.6 72 18 172/90 98 06/01/16 19:30 Room Air 06/01/16 16:25 97.9 68 19 186/104 97 06/01/16 11:00 94 121/84 06/01/16 10:59 97.4 71 18 168/82 98 164/89 I/O 06/01/16 06/01/16 06/01/16 06/02/16 06/02/16 06/02/16 07:00 15:00 23:00 07:00 15:00 23:00 Intake Total 240 ml 1200 ml 1240 ml 1240 ml Balance 240 ml 1200 ml 1240 ml 1240 ml Intake Oral 240 ml 1200 ml 240 ml 240 ml IV Total 1000 ml 1000 ml # Voids 2 4 3 1 # Bowel Movements 0 0 0 0 Result Diagram: 06/02/16 0514 06/02/16 0514 Imaging Last Impressions Head CT 05/27/16 0000 Signed Impressions: Service Date/Time: Friday, May 27, 2016 12:28 - CONCLUSION: No acute disease. Devon Johansen MD Chest X-Ray 05/22/16 [id number] Signed Impressions: Service Date/Time: May 23:33 - CONCLUSION: 1. No consolidative infiltrate in the right lower lung without evidence of pleural effusion. 2. Air-containing oval structure superimposes upon the lower right heart silhouette, probably related to a bowel structure crossing the diaphragm. CT abdomen/pelvis has been ordered and this finding can be further assessed at that time. Gerson Lafleur MD Abdomen/Pelvis CT 05/22/16 [id number] Signed Impressions: Service Date/Time: May 23:58 - CONCLUSION: 1. No dilated loops of small or large bowel. 2. P. air-containing structure seen on recent chest x-ray represents a gastric pull-through procedure. The infiltrate seen in the right lower lung is densely consolidative and contains air bronchograms. Gerson Lafleur MD Objective Remarks GENERAL: Well-developed well-nourished. In no acute distress. SKIN: Warm and dry. No lesions noted. HEENT: Normocephalic. Pupils equal and round. Mucous membranes pink and moist. CARDIOVASCULAR: Regular rate and rhythm. No murmur appreciated. RESPIRATORY: No accessory muscle use. Clear to auscultation. Breath sounds equal bilaterally. GASTROINTESTINAL: Abdomen soft, non-tender, nondistended. Bowel sounds x4. MUSCULOSKELETAL: No obvious deformities. No clubbing or cyanosis. No edema. NEUROLOGICAL: Awake and alert. No focal neurological deficits. Moves upper and lower extremities spontaneously. Normal speech. PSYCHIATRIC: Appropriate mood and affect; insight and judgment normal. Procedures None A/P Problem List: (1) UTI (urinary tract infection) ICD Code: N39.0 Status: Resolved (2) PNA (pneumonia) ICD Code: J18.9 Status: Resolved (3) Tobacco abuse ICD Code: Z72.0 Status: Chronic Assessment and Plan 55-year-old female with a PMH of Anxiety, Stomach/Esophageal CA and Tobacco Abuse who presented with generalized fatigue and non-productive cough x4 days Sepsis: Tmax 102, tachycardia, WBC 2.9. Improved. . Blood cultures negative to date. Metabolic acidosis: likely secondary to bicarbonate loss from vomiting, poor intake, and diarrhea. Continue bicarbonate, improving. Monitor BMP. Orthostasis: Nonfocal. Negative head CT. Neurochecks and fall precautions. Antivert as needed. PT consulted. Continue midodrine and fludrocortisone. Permissive supine hypertension, monitor orthostatics. Encourage physical therapy daily. Nausea/dry heaving: CT Abd/Pelvis 05/22 unremarkable for any significant intra- abdominal finding. Antiemetics as needed, and Compazine. Bentyl for cramping. Hypokalemia/hypomagnesemia: From poor oral intake. Potassium 2.5, replaced orally and by IV. Magnesium 1.4, replaced by IV. Follow-up BMP. UTI, suspect pyelonephritis: U/a w/ evidence of UTI . Urine culture with Escherichia coli. Received IV Rocephin 05/24-05/27, then changed to oral Ceftin, continue this for now. Diarrhea: C. difficile negative. Lactinex. Resolved. PNA: CXR w/ RLL consolidation. Influenza and urinary antigens negative. Status post azithromycin and Rocephin. DuoNeb, Mucinex, Symbicort. Improved. Repeat chest x-ray in 6 weeks. Pancytopenia. DIC workup negative. Stable, likely secondary to sepsis. Monitor CBC. Resolved. Tobacco Abuse: Pt counseling. NicoDerm prn if needed. DVT Prophylaxis: SCD/Teds. Discharge Planning Case management notes concerning discharge disposition reviewed. Await further clinical improvement Zbigniew Collins Jun 02, 2016 10:29
[2016-06-02 12:00] VITALS: BP 154/79; PULSE 78; RESP 20; TEMP 97.7; O2SAT 98
[2016-06-02] MEDS ORDERED: PROCHLORPERAZINE MALEATE 5 MG TAB PO PRN (12:00)
[2016-06-02] MEDS: MAGNESIUM SULFATE 1 GM PREMIX 100 ML IV SCH ×2 (14:36→16:52)
[2016-06-02] MEDS: DICYCLOMINE HCL 20 MG TAB PO SCH ×2 (14:36→16:53)
[2016-06-02 16:00] VITALS: BP_SYST 110; BP_SYST 161; BP_SYST 162; BP_DIAS 66; BP_DIAS 76; BP_DIAS 91; PULSE 75; RESP 20; TEMP 98; O2SAT 98
[2016-06-02] MEDS ORDERED: MAGNESIUM SULFATE 1 GM PREMIX 100 ML IV ONE (16:30)
[2016-06-02 20:58] VITALS: BP 184/90; PULSE 62; RESP 16; TEMP 97.8; O2SAT 97
[2016-06-03 00:30] VITALS: BP 176/88; PULSE 76; RESP 20; TEMP 97.6; O2SAT 97
[2016-06-03 04:00] VITALS: BP 165/79; PULSE 77; RESP 18; TEMP 98.3; O2SAT 97
[2016-06-03] MEDS: SODIUM CHLOR 0.9% 1000 ML INJ 1,000 ML IV SCH (04:42)
[2016-06-03] MEDS: MIDODRINE 5 MG TAB PO SCH ×3 (05:51→18:09)
[2016-06-03] MEDS: traMADol HCL 50 MG TAB PO PRN (05:52)
[2016-06-03 08:38] VITALS: BP_SYST 193; BP_SYST 203; BP_SYST 212; BP_DIAS 113; BP_DIAS 133; BP_DIAS 91; PULSE 70; RESP 16; TEMP 98; O2SAT 97
[2016-06-03 08:53] LABS: ANION GAP 10 MEQ/L (5-15); BICARBONATE 25.2 MEQ/L (21.0-32.0); BLOOD UREA NITROGEN LESS THAN 1 MG/DL (7-18); CHLORIDE 97 MEQ/L (98-107); GLOMERULAR FILTRATION RATE 272 ML/MIN (>89); MAGNESIUM 1.7 MG/DL (1.5-2.5); SODIUM (NA) 132 MEQ/L (136-145)
[2016-06-03] MEDS: SODIUM CHLORIDE 0.9% FLUSH 5 ML FLUSH FLUSH SCH ×2 (09:00→21:00)
[2016-06-03 09:08] LABS: POTASSIUM 2.4 MEQ/L (3.5-5.1)
[2016-06-03] MEDS: DICYCLOMINE HCL 20 MG TAB PO SCH ×3 (09:32→18:09)
[2016-06-03] MEDS: CEFUROXIME AXETIL 500 MG TAB PO SCH ×2 (09:32→21:00)
[2016-06-03] MEDS: LACTOBACILLUS ACIDOPHILUS TAB PO SCH ×3 (09:32→18:09)
[2016-06-03] MEDS: SODIUM BICARBONATE 650 MG TAB PO SCH ×2 (09:32→21:13)
[2016-06-03] MEDS: BUDESONIDE-FORMOTEROL 160/4.5 MCG INHALER INH SCH ×2 (09:33→21:12)
[2016-06-03] MEDS: guaiFENesin E.R. 600 MG TAB PO SCH ×2 (09:33→21:13)
[2016-06-03] MEDS: FLUDROCORTISONE ACETATE 0.1 MG TAB PO SCH (09:33)
--- NOTE | 2016-06-03 09:56 | HHI.PR ---
Subjective Remarks Follow for orthostasis and abdominal cramping Abdominal cramping resolved, still positive for orthostatic, blood pressure recumbent is too high, systolic 210s, goes down to 190s, still with dizziness and lightheadedness but better. No diarrhea. Still with mild abdominal pain. Objective Vitals Vital Signs Date Time Temp Pulse Resp B/P Pulse Ox O2 Delivery O2 Flow Rate FiO2 06/03/16 04:00 98.3 77 18 165/79 97 06/03/16 00:30 97.6 76 20 176/88 97 06/02/16 20:58 97.8 62 16 184/90 97 06/02/16 19:45 Room Air 06/02/16 16:00 98.0 75 20 161/91 98 162/76 110/66 06/02/16 12:00 97.7 78 20 154/79 98 I/O 06/02/16 06/02/16 06/02/16 06/03/16 06/03/16 06/03/16 07:00 15:00 23:00 07:00 15:00 23:00 Intake Total 1240 ml 800 ml Balance 1240 ml 800 ml Intake Oral 240 ml IV Total 1000 ml 800 ml # Voids 1 6 5 4 # Bowel Movements 0 1 0 1 Result Diagram: 06/02/16 0514 06/03/16 0710 Objective Remarks GENERAL: Well-developed well-nourished. In no acute distress. No signs of dehydration, appears sick. SKIN: Warm and dry. No lesions noted. HEENT: Normocephalic. Pupils equal and round. Mucous membranes pink and moist. CARDIOVASCULAR: Regular rate and rhythm. No murmur appreciated. RESPIRATORY: No accessory muscle use. Clear to auscultation. Decreased breath sounds bilaterally. GASTROINTESTINAL: Abdomen soft, nontender, nondistended. Bowel sounds x4. NEUROLOGICAL: Awake and alert and oriented 3 No focal neurological deficits. Moves upper and lower extremities spontaneously. Normal speech. No nystagmus Procedures None A/P Problem List: (1) UTI (urinary tract infection) ICD Code: N39.0 Status: Resolved (2) PNA (pneumonia) ICD Code: J18.9 Status: Resolved (3) Tobacco abuse ICD Code: Z72.0 Status: Chronic Assessment and Plan 55-year-old female with a PMH of Anxiety, Stomach/Esophageal CA and Tobacco Abuse who presented with generalized fatigue and non-productive cough x4 days Sepsis: Tmax 102, tachycardia, WBC 2.9. Improved. . Blood cultures negative to date. Acidosis likely secondary to bicarbonate loss from vomiting and now diarrhea. Patient refused bicarbonate counseled. Questionable RTA Diarrhea. Discontinue Reglan, Lactinex, C. difficile negative. Resolved. Orthostasis secondary to above. Nonfocal. Negative head CT. Improved. Neurochecks and fall precautions. Antivert as needed. PT evaluation, still positive but systolic blood pressure lying down is too high, decrease midodrine , continue continue fludrocortisone, explained to patient about permissive hypertension so that she can tolerate orthostatic hypotension. Encourage physical therapy daily. Patient noncompliant with physical therapy. UTI, suspect pyelonephritis: U/a w/ evidence of UTI . Urine culture with Escherichia coli switch IV Rocephin to Ceftin, finished today. CT Abd/Pelvis unremarkable for any significant intra-abdominal finding. Change pain medication from tramadol to [place]. PNA: CXR w/ RLL consolidation, personally reviewed. Influenza and urinary antigens negative. Status post azithromycin and Rocephin. DuoNeb, Mucinex, Symbicort. Repeat chest x-ray in 6 weeks. Pancytopenia. DIC workup negative. Stable likely secondary to sepsis. Monitor CBC. Resolved. Hypokalemia: Replace again Hypomagnesemia-place Tobacco Abuse: Pt counseling. NicoDerm prn if needed. DVT Prophylaxis: SCD/Teds. Discharge Planning Discharge once Orthostatics negative, possibly tomorrow Brian Che MD Jun 03, 2016 09:56
[2016-06-03] MEDS ORDERED: MAGNESIUM SULFATE 1 GM PREMIX 100 ML IV ONE (10:00)
[2016-06-03] MEDS ORDERED: ACETAMINOPHEN/HYDROcodone 325 MG/5 MG TAB PO PRN (10:00)
[2016-06-03] MEDS ORDERED: NALOXONE HCL 0.4 MG/ML AMP IV PRN (10:00)
[2016-06-03 12:00] VITALS: BP 164/82; PULSE 77; RESP 16; TEMP 97.9; O2SAT 98
[2016-06-03] MEDS: POTASSIUM CHLOR 20 MEQ PREMIX 100 ML IV SCH ×2 (12:11→14:47)
[2016-06-03] MEDS: POTASSIUM CHLORIDE 25 MEQ EFFERVESCENT TAB PO SCH ×2 (12:12→21:14)
[2016-06-03 16:00] VITALS: BP 160/82; PULSE 75; RESP 16; TEMP 98; O2SAT 99
[2016-06-03 20:00] VITALS: BP 179/88; PULSE 71; RESP 18; TEMP 98.5; O2SAT 98
[2016-06-03] MEDS: ACETAMINOPHEN/HYDROcodone 325 MG/7.5 MG TAB PO PRN (21:13)
[2016-06-03] MEDS: ONDANSETRON HCL 4 MG/2 ML VIAL IVP PRN (23:16)
[2016-06-04] VITALS (7 sets, daily range): BP systolic 109–164; BP diastolic 70–103; PULSE 76–81; RESP 16–20; TEMP 97.9–98.5; O2SAT 81–98
[2016-06-04] MEDS: ACETAMINOPHEN/HYDROcodone 325 MG/7.5 MG TAB PO PRN (06:02)
[2016-06-04] MEDS: MIDODRINE 5 MG TAB PO SCH ×2 (06:02→11:56)
[2016-06-04] MEDS: ONDANSETRON HCL 4 MG/2 ML VIAL IVP PRN ×2 (06:03→12:03)
[2016-06-04] MEDS: BUDESONIDE-FORMOTEROL 160/4.5 MCG INHALER INH SCH (08:55)
[2016-06-04] MEDS: LACTOBACILLUS ACIDOPHILUS TAB PO SCH ×2 (08:56→11:56)
[2016-06-04] MEDS: FLUDROCORTISONE ACETATE 0.1 MG TAB PO SCH (08:56)
[2016-06-04] MEDS: guaiFENesin E.R. 600 MG TAB PO SCH (08:56)
[2016-06-04] MEDS: SODIUM BICARBONATE 650 MG TAB PO SCH (08:56)
[2016-06-04] MEDS: SODIUM CHLORIDE 0.9% FLUSH 5 ML FLUSH FLUSH SCH (08:57)
[2016-06-04] MEDS: DICYCLOMINE HCL 20 MG TAB PO SCH ×2 (08:57→11:56)
[2016-06-04] MEDS: POTASSIUM CHLORIDE 25 MEQ EFFERVESCENT TAB PO SCH (08:57)
[2016-06-04] MEDS ORDERED: BENT20TA PO (09:16)
[2016-06-04] MEDS ORDERED: FLUD.1 PO (09:16)
[2016-06-04] MEDS ORDERED: MIDO5TAB PO (09:16)
--- NOTE | 2016-06-04 10:40 | HHI.PR ---
Subjective Remarks Follow-up for orthostatics Blood pressure 160 systolic, still mildly orthostatic but asymptomatic. No dizziness when getting up and going to the bathroom. Abdominal cramping almost resolved. No nausea or vomiting. Needs follow-up with Dr. Villeda Objective Vitals Vital Signs Date Time Temp Pulse Resp B/P Pulse Ox O2 Delivery O2 Flow Rate FiO2 06/04/16 09:07 109/70 06/04/16 09:06 139/90 06/04/16 09:05 137/80 06/04/16 08:00 98.5 81 16 164/103 81 06/04/16 04:00 97.9 78 18 142/78 98 06/04/16 00:00 98.1 79 18 129/83 97 06/03/16 20:00 98.5 71 18 179/88 98 06/03/16 20:00 Room Air 06/03/16 16:00 98.0 75 16 160/82 99 06/03/16 12:00 97.9 77 16 164/82 98 I/O 06/03/16 06/03/16 06/03/16 06/04/16 06/04/16 06/04/16 07:00 15:00 23:00 07:00 15:00 23:00 Intake Total 1200 ml 1240 ml 1240 ml Balance 1200 ml 1240 ml 1240 ml Intake Oral 1200 ml 240 ml 240 ml IV Total 1000 ml 1000 ml # Voids 4 5 1 1 # Bowel Movements 1 3 0 0 Result Diagram: 06/02/16 0514 06/03/16 0710 Objective Remarks GENERAL: Well-developed well-nourished. In no acute distress. No signs of dehydration, appears sick. SKIN: Warm and dry. No lesions noted. HEENT: Normocephalic. Pupils equal and round. Mucous membranes pink and moist. CARDIOVASCULAR: Regular rate and rhythm. No murmur appreciated. RESPIRATORY: No accessory muscle use. Clear to auscultation. Decreased breath sounds bilaterally. GASTROINTESTINAL: Abdomen soft, nontender, nondistended. NEUROLOGICAL: Awake and alert and oriented 3 No focal neurological deficits. Moves upper and lower extremities spontaneously. Normal speech. No nystagmus Procedures None A/P Problem List: (1) UTI (urinary tract infection) ICD Code: N39.0 Status: Resolved (2) PNA (pneumonia) ICD Code: J18.9 Status: Resolved (3) Tobacco abuse ICD Code: Z72.0 Status: Chronic Assessment and Plan 55-year-old female with a PMH of Anxiety, Stomach/Esophageal CA and Tobacco Abuse who presented with generalized fatigue and non-productive cough x4 days Sepsis: Tmax 102, tachycardia, WBC 2.9. Resolved. Blood cultures negative to date. Acidosis likely secondary to bicarbonate loss from vomiting and now diarrhea. Patient refused bicarbonate Diarrhea. Discontinue Reglan, Lactinex, C. difficile negative. Resolved. Orthostasis secondary to above. Nonfocal. Negative head CT. Improved. Neurochecks and fall precautions. Antivert as needed. PT evaluation, still positive but systolic blood pressure lying down is too high, continue midodrine and, explained to patient about permissive hypertension so that she can tolerate orthostatic hypotension. Encourage physical therapy daily. Patient noncompliant with physical therapy. UTI, suspect pyelonephritis: U/a w/ evidence of UTI . Urine culture with Escherichia coli switch IV Rocephin to Ceftin, finished course.. CT Abd/Pelvis unremarkable for any significant intra-abdominal finding. Change pain medication from tramadol to [place]. PNA: CXR w/ RLL consolidation, personally reviewed. Influenza and urinary antigens negative. Status post azithromycin and Rocephin. DuoNeb, Mucinex, Symbicort. Repeat chest x-ray in 6 weeks. Pancytopenia. DIC workup negative. Stable likely secondary to sepsis. Monitor CBC. Resolved. Hypokalemia: Replace again Hypomagnesemia-place Tobacco Abuse: Pt counseling. NicoDerm prn if needed. DVT Prophylaxis: SCD/Teds. Patient is to follow-up with community clinic. Consult case management Discharge Planning Discharge if BMP is stable Brian Che MD Jun 04, 2016 10:40
[2016-06-04 11:39] LABS: ANION GAP 6 MEQ/L (5-15); BICARBONATE 26.6 MEQ/L (21.0-32.0); BLOOD UREA NITROGEN LESS THAN 1 MG/DL (7-18); CHLORIDE 103 MEQ/L (98-107); GLOMERULAR FILTRATION RATE 152 ML/MIN (>89); MAGNESIUM 1.8 MG/DL (1.5-2.5); POTASSIUM 4.1 MEQ/L (3.5-5.1); SODIUM (NA) 136 MEQ/L (136-145)
== END 2016-06-04 16:28 | disposition home or self-care (01) | DRG 871 ==
LOC: NEPC 16:58 → NEDA 05-23 01:21 → NEPFCDU 05-23 04:36 → OBSVTOIN 05-24 08:13 → N04A 05-25 03:49
PROVIDERS: ADMIT Hospitalist; ATTEND Hospitalist
DX: A41.9 Sepsis, unspecified organism (principal); J18.9 Pneumonia, unspecified organism; E87.2 Acidosis; D61.818 Other pancytopenia; N12 Tubulo-interstitial nephritis, not specified as acute or chronic; K52.9 Noninfective gastroenteritis and colitis, unspecified; F41.9 Anxiety disorder, unspecified; F17.210 Nicotine dependence, cigarettes, uncomplicated; M54.9 Dorsalgia, unspecified; E87.6 Hypokalemia; G89.29 Other chronic pain; Z20.828 Contact with and (suspected) exposure to other viral communicable diseases; B96.20 Unspecified Escherichia coli [E. coli] as the cause of diseases classified elsewhere; E83.42 Hypomagnesemia; I95.1 Orthostatic hypotension; Z85.01 Personal history of malignant neoplasm of esophagus; Z85.028 Personal history of other malignant neoplasm of stomach; Z91.19 Patient's noncompliance with other medical treatment and regimen
CPT/HCPCS: 70450; 71010; 74176; 76937; 80048; 80053; 81001; 83605; 83690; 83735; 84155; 85025; 85384; 85610; 85730; 87040; 87077; 87086; 87186; 87449; 87493; 87804; 96361; 96374; 96375; G0378; J0456; J0696; J0780; J2270; J2405; J3475; J3480; J7030; J7050

== ENCOUNTER 2016-06-12 20:22 | Inpatient (IN) | payer SELFPAY ==
[~2016-06-12 20:22] MED LIST changes: +ALBU.5I NEB; -ALBU0.086 INH; -ALBU6.7H INH; +BENT20TA PO; -CEFD300C PO; +FLUD.1 PO; -IBUP800T23 PO; +LACT PO; +MECL-62 PO; +MIDO5TAB PO; -PROM25TA5 PO; +SODI650T PO; +SYMB160A INH
[2016-06-12 20:24] VITALS: BP 171/86; PULSE 95; RESP 14; TEMP 99.1; O2SAT 97
--- NOTE | 2016-06-12 21:08 | PD ---
Physical Exam Date Seen by Provider: Jun 12, 2016 Time Seen by Provider: 21:02 Narrative Patient seen in Triage with complaints of Itchy worsening rash since being discharged from hospital from being treated for Pneumonia, dehydration, UTI, and dehydration. Patient states she has been vomiting every day except today, but she didn't take her Medications today. The rash is very itchy. Patient was given Benadryl with some improvement today. Patient denies Fever, Pain or other constitutional symptoms. Vital Signs are stable. Patient waiting for medical bed placement. Data Data Last Documented VS Vital Signs Date Time Temp Pulse Resp B/P Pulse Ox O2 Delivery O2 Flow Rate FiO2 06/12/16 20:24 99.1 95 14 171/86 97 Room Air [facility] Medical Record Reviewed: Yes Supervised Visit with LION: Yes Condition: Stable Daniel Valentin Jun 12, 2016 21:08
[2016-06-13] VITALS (8 sets, daily range): BP systolic 123–173; BP diastolic 67–97; PULSE 74–99; RESP 12–20; TEMP 96.4–98.4; O2SAT 95–99
[2016-06-13] MEDS ORDERED: ONDANSETRON ODT 4 MG TAB PO ONE (00:30)
[2016-06-13 01:02] LABS: HEMATOCRIT 34.7 % (35.0-46.0); MEAN CELL VOLUME 96.4 FL (80.0-100.0); MEAN CORPUSCULAR HEMOGLOBIN 33.5 PG (27.0-34.0); MEAN CORPUSCULAR HGB CONC 34.8 % (32.0-36.0); PLATELET COUNT 139 TH/MM3 (150-450); RED CELL DISTRIBUTION WIDTH 14.2 % (11.6-17.2)
[2016-06-13 01:06] LABS: HEMO FLAGS AUTO DIFF
[2016-06-13 01:16] LABS: ALKALINE PHOSPHATASE 66 U/L (45-117); TOTAL BILIRUBIN ADULT 0.5 MG/DL (0.2-1.0)
[2016-06-13 01:20] LABS: ALT (GPT) 11 U/L (10-53); ANION GAP 8 MEQ/L (5-15); AST (GOT) 37 U/L (15-37); BICARBONATE 27.3 MEQ/L (21.0-32.0); BLOOD UREA NITROGEN 15 MG/DL (7-18); CHLORIDE 97 MEQ/L (98-107); GLOMERULAR FILTRATION RATE 12 ML/MIN (>89); SODIUM (NA) 132 MEQ/L (136-145)
[2016-06-13 01:25] LABS: POTASSIUM 4.2 MEQ/L (3.5-5.1)
[2016-06-13 01:43] LABS: EOSINOPHILS 2 % (0-4); POLYS (SEG NEUTROPHILS) 71 % (16-70); WBC DIFF SAMPLE 100
[2016-06-13 01:44] LABS: PLATELET ESTIMATE SMEAR LOW (NORMAL); PLATELET MORPHOLOGY NORMAL (NORMAL); SCAN/DIFF FINAL DIFF MANUAL
[2016-06-13] MEDS ORDERED: SODIUM CHLOR 0.9% 1000 ML INJ 1,000 ML IV ONE (02:00)
[2016-06-13] MEDS ORDERED: MORPHINE SULFATE 8 MG/ML INJ IV PUSH ONE (02:00)
--- NOTE | 2016-06-13 02:23 | PD ---
HPI Chief Complaint: GI Complaint Time Seen by Provider: 01:53 Travel History International Travel<30 days: No Contact w/Intl Traveler<30days: No Traveled to known affect area: No History of Present Illness HPI 55-year-old female arrives complaining of vomiting for about 1 week. She reports discharged from the hospital following an admission for a pneumonia and pyelonephritis. Any oral intake causes vomiting. Subjective fever reported. She reports unusual rashing noted about her chest and back. She applied calamine lotion which did not help. Decreased bowel movements noted. PFSH Past Medical History Blood Disorders: No Anxiety: Yes Depression: Yes Cancer: Yes (esoph. CA) Cardiovascular Problems: Yes Chemotherapy: Yes COPD: Yes Diminished Hearing: No Endocrine: No Gastrointestinal Disorders: Yes (hx. esophageal ca) Genitourinary: No Hypertension: Yes Immune Disorder: No Musculoskeletal: Yes Neurologic: No Psychiatric: Yes Reproductive: No Respiratory: Yes Radiation Therapy: Yes ?: Not : 2 Para: 2 Tubal Ligation: Yes Past Surgical History Cardiac Surgery: No Hysterectomy: Yes Neurologic Surgery: Yes Tonsillectomy: Yes Other Surgery: Yes (CANCER SX) Social History Alcohol Use: Yes (PT STATES "COUPLE TIMES A WEEK") Tobacco Use: Yes Substance Use: No Allergies-Medications (Allergen,Severity, Reaction): Coded Allergies: Codeine (Verified Allergy, Severe, Rash, 06/13/16) Reported Meds & Prescriptions Reported Meds & Active Scripts Active Bentyl (Dicyclomine HCl) 20 Mg Tab 20 Mg PO TID PRN Midodrine 5 Mg Tab 5 Mg PO TID@,,17 21 Days Fludrocortisone (Fludrocortisone Acetate) 0.1 Mg Tab 0.1 Mg PO DAILY Midodrine 5 Mg Tab 5 Mg PO TID@,,17 Meclizine (Meclizine HCl) 25 Mg Tab 25 Mg PO Q6H PRN Acidophilus/l-Sporogenes (Lactobacillus Acidophilus) 1 Tab Tab 1 Tab PO TID Sodium Bicarbonate 650 Mg Tab 650 Mg PO BID Symbicort Inh (Budesonide/Formoterol Fumarate) 160-4.5 Mcg/Act Aero 2 Puff INH Q12HR Reported Albuterol Neb (Albuterol Sulfate) 2.5 Mg/0.5 Ml Neb 2.5 Mg NEB Q4HR NEB PRN Note: The Albuterol Sulfate Inhalation Solution is concentrated and must be diluted. Read complete instructions carefully before using. Review of Systems Except as stated in HPI: all other systems reviewed are Neg General / Constitutional: No: Fever Physical Exam Narrative GENERAL: 55-year-old female well-nourished well-developed mild distress SKIN: Focused skin assessment warm/dry. HEAD: Atraumatic. Normocephalic. EYES: Pupils equal and round. No scleral icterus. No injection or drainage. ENT: No nasal bleeding or discharge. Mucous membranes pink and moist. NECK: Trachea midline. No JVD. CARDIOVASCULAR: Regular rate and rhythm. No murmur appreciated. RESPIRATORY: No accessory muscle use. Clear to auscultation. Breath sounds equal bilaterally. GASTROINTESTINAL: Soft. No focal tenderness. MUSCULOSKELETAL: No obvious deformities. No clubbing. No cyanosis. No edema. NEUROLOGICAL: Awake and alert. No obvious cranial nerve deficits. Motor grossly within normal limits. Normal speech. PSYCHIATRIC: Appropriate mood and affect; insight and judgment normal. Data Data Last Documented VS Vital Signs Date Time Temp Pulse Resp B/P Pulse Ox O2 Delivery O2 Flow Rate FiO2 06/12/16 20:24 99.1 95 14 171/86 97 Room Air Vital signs reviewed Orders Complete Blood Count With Diff (06/13/16 00:19) Comprehensive Metabolic Panel (06/13/16 00:19) Urinalysis - C+S If Indicated (06/13/16 00:19) Iv Access Insert/Monitor (06/13/16 00:19) Ondansetron Odt (Zofran Odt) (06/13/16 00:30) Sodium Chlor 0.9% 1000 Ml Inj (Ns 1000 M (06/13/16 02:00) Morphine Inj (Morphine Inj) (06/13/16 02:00) Admit Order (Ed Use Only) (06/13/16 02:35) Admit To Inpatient (06/13/16 ) Vital Signs (Adult) Q4H (06/13/16 02:43) Activity Oob With Assistance (06/13/16 02:43) Tobacco Classer / Telemetry .CONTINUOUS (06/13/16 02:43) Diet Heart Healthy (06/13/16 Breakfast) Sodium Chlor 0.9% 1000 Ml Inj (Ns 1000 M (06/13/16 02:43) Sodium Chloride 0.9% Flush (Ns Flush) (06/13/16 02:45) Sodium Chloride 0.9% Flush (Ns Flush) (06/13/16 09:00) Ondansetron Inj (Zofran Inj) (06/13/16 02:45) Comprehensive Metabolic Panel (06/13/16 06:00) Creatine Kinase (Cpk) (06/13/16 06:00) Creatine Kinase (Cpk) (06/13/16 12:00) Heparin Inj (Heparin Inj) (06/13/16 06:00) Naloxone Inj (Narcan Inj) (06/13/16 02:45) Inpatient Certification (06/13/16 ) Bladder Scan PRN (06/13/16 02:45) Labs Laboratory Tests Test 06/13/16 06/13/16 00:45 02:00 White Blood Count 7.0 TH/MM3 Red Blood Count 3.60 MIL/MM3 Hemoglobin 12.1 GM/DL Hematocrit 34.7 % Mean Corpuscular Volume 96.4 FL Mean Corpuscular Hemoglobin 33.5 PG Mean Corpuscular Hemoglobin 34.8 % Concent Red Cell Distribution Width 14.2 % Platelet Count 139 TH/MM3 Mean Platelet Volume 10.8 FL Neutrophils (%) (Auto) % Lymphocytes (%) (Auto) % Monocytes (%) (Auto) % Eosinophils (%) (Auto) % Basophils (%) (Auto) % Neutrophils # (Auto) TH/MM3 Lymphocytes # (Auto) TH/MM3 Monocytes # (Auto) TH/MM3 Eosinophils # (Auto) TH/MM3 Basophils # (Auto) TH/MM3 CBC Comment AUTO DIFF Differential Total Cells 100 Counted Neutrophils % (Manual) 71 % Lymphocytes % 19 % Monocytes % 8 % Eosinophils % 2 % Neutrophils # (Manual) 5.0 TH/MM3 Differential Comment FINAL DIFF MANUAL Platelet Estimate LOW Platelet Morphology Comment NORMAL Red Cell Morphology Comment NORMAL Sodium Level 132 MEQ/L Potassium Level 4.2 MEQ/L Chloride Level 97 MEQ/L Carbon Dioxide Level 27.3 MEQ/L Anion Gap 8 MEQ/L Blood Urea Nitrogen 15 MG/DL Creatinine 3.95 MG/DL Estimat Glomerular Filtration 12 ML/MIN Rate Random Glucose 92 MG/DL Calcium Level 9.0 MG/DL Total Bilirubin 0.5 MG/DL Aspartate Amino Transf 37 U/L (AST/SGOT) Alanine Aminotransferase 11 U/L (ALT/SGPT) Alkaline Phosphatase 66 U/L Total Protein 7.0 GM/DL Albumin 3.0 GM/DL Urine Color YELLOW Urine Turbidity HAZY Urine pH 6.0 Urine Specific [place] 1.007 Urine Protein TRACE mg/dL Urine Glucose (UA) NEG mg/dL Urine Ketones NEG mg/dL Urine Occult Blood TRACE Urine Nitrite NEG Urine Bilirubin NEG Urine Urobilinogen LESS THAN 2.0 MG/DL Urine Leukocyte Esterase MOD Urine RBC 3 /hpf Urine WBC 7 /hpf Urine Squamous Epithelial 6 /hpf Cells Urine Transitional Epithelial <1 /hpf Cells Urine Mucus FEW /lpf Microscopic Urinalysis Comment CULT NOT INDICATED MDM Medical Decision Making Medical Screen Exam Complete: Yes Emergency Medical Condition: Yes Differential Diagnosis UTI, renal failure, electrolyte imbalance, hepatobiliary disease Narrative Course CBC & BMP Diagram 06/13/16 00:45 LFTs normal Urinalysis likely contaminated specimen Patient has new onset renal failure of unknown etiology. She'll be admitted for workup of the same. Discussed with Dr. Otero. IVF and zofran started in ER. Diagnosis Primary Impression: Renal failure Additional Impression: Nausea & vomiting Qualified Code: R11.2 - Nausea and vomiting, intractability of vomiting not specified, unspecified vomiting type Admitting Information Admitting Physician Requests: Admit Condition: Stable David Coello MD Jun 13, 2016 02:23
[2016-06-13 02:30] LABS: BLOOD, URINE TRACE (NEG); COMMENT (UR) CULT NOT INDICATED; CULTURE IF INDICATED CULT NOT INDICATED; GLUCOSE,URINE NEG (NEG); KETONE, URINE NEG (NEG); MUCUS URINE FEW /lpf (OCC); NITRITE,URINE NEG (NEG); SQUAMOUS EPITHELIAL CELL URINE 6 /hpf (0-5); TRANSITIONAL EPI CELLS, URINE <1 /hpf; URINE COLOR YELLOW (YELLW/STRAW)
[2016-06-13] MEDS ORDERED: SODIUM CHLORIDE 0.9% FLUSH 10 ML FLUSH IV FLUSH PRN (02:45)
[2016-06-13] MEDS ORDERED: NALOXONE HCL 0.4 MG/ML AMP IV PRN ×2 (02:45→16:30)
[2016-06-13] MEDS: SODIUM CHLOR 0.9% 1000 ML INJ 1,000 ML IV SCH ×3 (03:30→21:24)
--- NOTE | 2016-06-13 05:06 | HHI.HP ---
[facility] [place] Primary [place] Phys[place] No Primary Care Physician Admission Diagnosis Renal Failure, N/V Diagnoses: Chief Complaint: N/V, and rash Travel History International Travel<30 Days: No Contact w/Intl Traveler <30 Da: No Traveled to Known Affected Are: No History of Present Illness 55 y/o female with a history of Esophageal/ stomach cancer, COPD, and presented to the hospital with complaints of nausea, vomiting, and a rash. Since being discharged she has had constant nausea and vomiting every day, and has been unable to keep anything down.. Denies any diarrhea, She says she has not had a BM since Discharge. She denies any dysuria but does say she has noticed to be urinating less each day. She also complains of a rash on chest for the past 7 days, while at home she used calamine lotion last night and then she woke up today it had spread to her neck and face. She states she did have the rash last admission and was started on multiple different medications, fluid is unsure which one she is having a reaction to. Patient does state she was discharged with ciprofloxacin, but that has not been documented. She denies any chest pain, SOB, fever or chills. Review of Systems Constitutional: DENIES: Fever, Chills Respiratory: DENIES: Cough, Shortness of breath Cardiovascular: DENIES: Chest pain, Lower Extremity Edema Gastrointestinal: COMPLAINS OF: Nausea, Vomiting, DENIES: Diarrhea Genitourinary: DENIES: Hematuria, Dysuria Musculoskeletal: DENIES: Back pain, Neck pain Integumentary: COMPLAINS OF: Pruritus, Rash Hematologic/lymphatic: DENIES: Lymphadenopathy Immunologic/allergic: DENIES: Urticaria Neurologic: DENIES: Headache Past Family Social History Past Medical History COPD Esophageal and Stomach cancer Past Surgical History Partial stomach and esophagectomy Tubal ligation Hip replacement Reported Medications Reported Meds & Active Scripts Active Bentyl (Dicyclomine HCl) 20 Mg Tab 20 Mg PO TID PRN Midodrine 5 Mg Tab 5 Mg PO TID@07,12,17 21 Days Fludrocortisone (Fludrocortisone Acetate) 0.1 Mg Tab 0.1 Mg PO DAILY Midodrine 5 Mg Tab 5 Mg PO TID@07,,17 Meclizine (Meclizine HCl) 25 Mg Tab 25 Mg PO Q6H PRN Acidophilus/l-Sporogenes (Lactobacillus Acidophilus) 1 Tab Tab 1 Tab PO TID Sodium Bicarbonate 650 Mg Tab 650 Mg PO BID Symbicort Inh (Budesonide/Formoterol Fumarate) 160-4.5 Mcg/Act Aero 2 Puff INH Q12HR Reported Albuterol Neb (Albuterol Sulfate) 2.5 Mg/0.5 Ml Neb 2.5 Mg NEB Q4HR NEB PRN Note: The Albuterol Sulfate Inhalation Solution is concentrated and must be diluted. Read complete instructions carefully before using. Allergies: Coded Allergies: Codeine (Verified Allergy, Severe, Rash, 06/13/16) Active Ordered Medications Current Medications Medications (Trade) Dose Ordered Sig/Bryan Route Start Time Stop Time Status Last Admin (NS 1000 ml Inj) 1,000 ml @ 100 mls/hr Q10H IV 06/13/16 02:43 06/13/16 03:30 (NS Flush) 2 ml UNSCH PRN IV FLUSH 06/13/16 02:45 (NS Flush) 2 ml BID IV FLUSH 06/13/16 09:00 (Zofran Inj) 4 mg Q6H PRN IVP 06/13/16 02:45 (Heparin Inj) 5,000 units Q8H SQ 06/13/16 06:00 (Narcan Inj) 0.4 mg UNSCH PRN IV 06/13/16 02:45 Family History Mom: HTN Grandmother: Colon cancer Social History Tobacco use: Quit 1 month ago Alcohol use: occasionally Illicit drug use: Denies Physical Exam Vital Signs Vital Signs Date Time Temp Pulse Resp B/P Pulse Ox O2 Delivery O2 Flow Rate FiO2 06/12/16 20:24 99.1 95 14 171/86 97 Room Air Physical Exam GENERAL: This is a well-nourished, well-developed patient, in no apparent distress. SKIN: Reddened flat rash on chest and cheeks HEAD: Atraumatic. Normocephalic. No temporal or scalp tenderness. EYES: Pupils equal round and reactive. Extraocular motions intact. No scleral icterus. No injection or drainage. ENT: Nose without bleeding, purulent drainage or septal hematoma. Airway patent. NECK: Trachea midline. No JVD or lymphadenopathy. Supple, nontender, no meningeal signs. CARDIOVASCULAR: Regular rate and rhythm without murmurs, gallops, or rubs. RESPIRATORY: Clear to auscultation. Breath sounds equal bilaterally. No wheezes , rales, or rhonchi. GASTROINTESTINAL: Abdomen soft, tenderness, nondistended. No hepato-splenomegaly , or palpable masses. No guarding. MUSCULOSKELETAL: Extremities without clubbing, cyanosis, or edema. No joint tenderness, effusion, or edema noted. No calf tenderness. NEUROLOGICAL: Awake and alert. Motor and sensory grossly within normal limits. Normal speech. Laboratory Laboratory Tests Test 06/13/16 06/13/16 00:45 02:00 White Blood Count 7.0 Red Blood Count 3.60 Hemoglobin 12.1 Hematocrit 34.7 Mean Corpuscular Volume 96.4 Mean Corpuscular Hemoglobin 33.5 Mean Corpuscular Hemoglobin 34.8 Concent Red Cell Distribution Width 14.2 Platelet Count 139 Mean Platelet Volume 10.8 Neutrophils (%) (Auto) Lymphocytes (%) (Auto) Monocytes (%) (Auto) Eosinophils (%) (Auto) Basophils (%) (Auto) Neutrophils # (Auto) Lymphocytes # (Auto) Monocytes # (Auto) Eosinophils # (Auto) Basophils # (Auto) CBC Comment AUTO DIFF Differential Total Cells 100 Counted Neutrophils % (Manual) 71 Lymphocytes % 19 Monocytes % 8 Eosinophils % 2 Neutrophils # (Manual) 5.0 Differential Comment FINAL DIFF MANUAL Platelet Estimate LOW Platelet Morphology Comment NORMAL Red Cell Morphology Comment NORMAL Sodium Level 132 Potassium Level 4.2 Chloride Level 97 Carbon Dioxide Level 27.3 Anion Gap 8 Blood Urea Nitrogen 15 Creatinine 3.95 Estimat Glomerular Filtration 12 Rate Random Glucose 92 Calcium Level 9.0 Total Bilirubin 0.5 Aspartate Amino Transf 37 (AST/SGOT) Alanine Aminotransferase 11 (ALT/SGPT) Alkaline Phosphatase 66 Total Protein 7.0 Albumin 3.0 Urine Color YELLOW Urine Turbidity HAZY Urine pH 6.0 Urine Specific Calvin 1.007 Urine Protein TRACE Urine Glucose (UA) NEG Urine Ketones NEG Urine Occult Blood TRACE Urine Nitrite NEG Urine Bilirubin NEG Urine Urobilinogen LESS THAN 2.0 Urine Leukocyte Esterase MOD Urine RBC 3 Urine WBC 7 Urine Squamous Epithelial 6 Cells Urine Transitional Epithelial <1 Cells Urine Mucus FEW Microscopic Urinalysis Comment CULT NOT INDICATED Result Diagram: 3/31/17 0045 3/31/17 0045 Assessment and Plan Problem List: (1) Acute kidney failure ICD Code: N17.9 Status: Acute (2) Nausea & vomiting ICD Code: R11.2 Status: Acute (3) Allergic reaction ICD Code: T78.40XA Status: Acute Assessment and Plan 55 y/o female with a history of Esophageal/ stomach cancer, COPD, and presented to the hospital with complaints of nausea, vomiting, and a rash. Acute Kidney failure, likely dehydration caused from vomiting Labs: Creatine 3.9, baseline .4 -Supportive IVF, encourage fluids -Trend BMP -Monitor telemetry Nausea and vomiting -Emetics as needed Allergic reaction, rash notice on chest and cheeks -Continue to monitor -We will order Benadryl if needed DVT prophylaxis: Heparin Written by Lindsay OHARA, acting as scribe for Dr. Otero on 06/13/16 at 0505. All or portions of this note were transcribed by scribe [Lindsay OHARA,]. I , Dr. Jono Otero personally performed the history, physical exam, and medical decision making; and confirmed the accuracy of the information in the transcribed note. Authenticated by Dr. Jono Otero on 06/13/16 at 0505. Discussed Condition With Patient, RN and ED physician Physician Certification 2 Midnight Certification Type: Admission for Inpatient Services Order for Inpatient Services The services are ordered in accordance with Medicare regulations or non- Medicare payer requirements, as applicable. In the case of services not specified as inpatient-only, they are appropriately provided as inpatient services in accordance with the 2-midnight benchmark. Estimated LOS (days): 2 days is the estimated time the patient will need to remain in the hospital, assuming treatment plan goals are met and no additional complications. Post-Hospital Plan: Home Problem Qualifiers (1) Acute kidney failure: Qualified Code: N17.9 - Acute renal failure, unspecified acute renal failure type (2) Nausea & vomiting: Qualified Code: R11.2 - Nausea and vomiting, intractability of vomiting not specified, unspecified vomiting type (3) Allergic reaction: Qualified Code: T78.40XA - Allergic reaction, initial encounter Lindsay Abreu Jun 13, 2016 05:06 Jono Otero MD Jun 13, 2016 08:15
[2016-06-13] MEDS: HEPARIN SODIUM - SQ 10,000 UNITS/ML VIAL SQ SCH ×3 (06:13→20:44)
[2016-06-13] MEDS: SODIUM CHLORIDE 0.9% FLUSH 10 ML FLUSH IV FLUSH SCH ×2 (10:30→20:34)
[2016-06-13 10:41] LABS: ALKALINE PHOSPHATASE 50 U/L (45-117); ALT (GPT) 10 U/L (10-53); ANION GAP 10 MEQ/L (5-15); AST (GOT) 17 U/L (15-37); BICARBONATE 24.3 MEQ/L (21.0-32.0); BLOOD UREA NITROGEN 13 MG/DL (7-18); CHLORIDE 100 MEQ/L (98-107); GLOMERULAR FILTRATION RATE 14 ML/MIN (>89); POTASSIUM 3.1 MEQ/L (3.5-5.1); SODIUM (NA) 134 MEQ/L (136-145); TOTAL BILIRUBIN ADULT 0.3 MG/DL (0.2-1.0)
[2016-06-13 10:42] LABS: CREATINE KINASE 18 U/L (26-192)
--- NOTE | 2016-06-13 16:25 | HHI.PR ---
Subjective Remarks f/u ARF no sob, still nauseated no vomiting, no diarrhea. No urinary symptoms or flank pain. Complaining of abdominal pain which is chronic. Objective Vitals Vital Signs Date Time Temp Pulse Resp B/P Pulse Ox O2 Delivery O2 Flow Rate FiO2 06/13/16 14:00 98.4 75 12 125/67 99 06/13/16 13:26 74 17 169/91 95 Room Air 06/13/16 11:52 79 18 173/89 98 Room Air 06/13/16 07:24 83 16 154/85 95 Room Air 06/13/16 05:52 81 20 154/97 98 Room Air 06/12/16 20:24 99.1 95 14 171/86 97 Room Air Result Diagram: 06/13/16 0045 06/13/16 0833 Objective Remarks Not in distress, well-nourished, looks stated age PERRL, pink conjunctiva without injection, anicteric Nose without bleeding, airway patent, oropharynx clear Supple neck, no masses or thyromegaly, trachea midline Normal rate and regular rhythm, no murmurs gallops or rubs appreciated. Clear to auscultation and symmetric bilaterally, normal respiratory effort. Normal bowel sounds, soft, mild abdominal tenderness Extremities without clubbing, cyanosis, or edema. No rash of generalized distribution. Skin is warm and dry. AAO x3, no cranial nerve deficits, moves all 4 extremities, no focal neurologic deficits Normal mood, appropriate affect A/P Problem List: (1) Acute kidney failure ICD Code: N17.9 Status: Acute (2) Nausea & vomiting ICD Code: R11.2 Status: Acute (3) Allergic reaction ICD Code: T78.40XA Status: Acute Assessment and Plan 55 y/o female with a history of Esophageal/ stomach cancer, COPD, and presented to the hospital with complaints of nausea, vomiting, and a rash. Acute Kidney failure, likely dehydration caused from vomiting, nonoliguric Labs: Creatine 3.9, better, continue IVF, increase to 1 50 cc per hour, check ultrasound of the kidneys, urinalysis did not show any proteinuria. Nausea and vomiting -Emetics as needed Allergic reaction, rash notice on chest and cheeks -Continue to monitor -We will order Benadryl if needed DVT prophylaxis: Heparin Restart home meds, hold off on midodrine and fludrocortisone Problem Qualifiers (1) Acute kidney failure: Qualified Code: N17.9 - Acute renal failure, unspecified acute renal failure type (2) Nausea & vomiting: Qualified Code: R11.2 - Nausea and vomiting, intractability of vomiting not specified, unspecified vomiting type (3) Allergic reaction: Qualified Code: T78.40XA - Allergic reaction, initial encounter Brian Che MD Jun 13, 2016 16:25
[2016-06-13] MEDS ORDERED: RESP: ALBUTEROL CONC 2.5 MG/0.5 ML NEB NEB PRN (16:30)
[2016-06-13] MEDS ORDERED: MECLIZINE HCL 25 MG TAB PO PRN (16:30)
[2016-06-13] MEDS ORDERED: ACETAMINOPHEN 325 MG TAB PO PRN (16:30)
[2016-06-13] MEDS: ACETAMINOPHEN/HYDROcodone 325 MG/10 MG TAB PO PRN (16:38)
[2016-06-13] MEDS: LACTOBACILLUS ACIDOPHILUS TAB PO SCH (18:00)
--- NOTE | 2016-06-13 18:15 | RADRPT ---
EXAM DATE/TIME: 06/13/2016 17:03 [place] COMPARISON: No previous studies available for comparison. INDICATIONS : Acute renal failure. MEDICAL HISTORY : Hypertension. Chronic obstructive pulmonary disease. Carcinoma, esophageal. Carcinoma, stomach. GERD. UTI. Anemia. Pruritis. Depression. Anxiety. SURGICAL HISTORY : Tonsillectomy. Hysterectomy. Tubal ligation. Right hip replacement. Chemotherapy. Radiation therapy. Blood transfusions. Cancer surgery. ENCOUNTER: Initial ACUITY: 1 day PAIN SCORE: 4/10 LOCATION: Bilateral flank MEASUREMENTS: RIGHT KIDNEY: 10.2 x 4.6 x 4.3 cm LEFT KIDNEY: 9.5 x 4.4 x 4.8 cm FINDINGS: RIGHT KIDNEY: Renal cortex is normal in thickness and echotexture. No hydronephrosis, stone, or mass. LEFT KIDNEY: Renal cortex is normal in thickness and echotexture. No hydronephrosis, stone, or mass. BLADDER: Within normal limits given the degree of distension. CONCLUSION: No acute disease. Rocael Willett MD on June 13, 2016 at 18:13 Board Certified Radiologist. This report was verified electronically.
[2016-06-13] MEDS: ONDANSETRON HCL 4 MG/2 ML VIAL IVP PRN (20:34)
[2016-06-13] MEDS: BUDESONIDE-FORMOTEROL 160/4.5 MCG INHALER INH SCH (20:39)
[2016-06-13] MEDS: SODIUM BICARBONATE 650 MG TAB PO SCH (20:46)
[2016-06-13] MEDS ORDERED: PROMETHAZINE HCL 25 MG SUPP RECTAL ONE (21:00)
[2016-06-13] MEDS: HYDROmorphone HCL PF 1 MG/ML VIAL IV PUSH PRN (21:23)
[2016-06-13] MEDS ORDERED: PROCHLORPERAZINE INJ 10 MG/2 ML VIAL IM ONE (21:30)
[2016-06-14] VITALS (9 sets, daily range): BP systolic 123–176; BP diastolic 88–122; PULSE 85–100; RESP 16–20; TEMP 96.2–98.8; O2SAT 91–97
[2016-06-14] MEDS: ONDANSETRON HCL 4 MG/2 ML VIAL IVP PRN ×4 (03:03→22:40)
[2016-06-14] MEDS: SODIUM CHLOR 0.9% 1000 ML INJ 1,000 ML IV SCH ×3 (03:04→16:44)
[2016-06-14] MEDS: HYDROmorphone HCL PF 1 MG/ML VIAL IV PUSH PRN ×4 (03:16→22:41)
[2016-06-14] MEDS: HEPARIN SODIUM - SQ 10,000 UNITS/ML VIAL SQ SCH ×3 (05:40→22:41)
[2016-06-14 08:25] LABS: BICARBONATE 23.1 MEQ/L (21.0-32.0); POTASSIUM 3.3 MEQ/L (3.5-5.1)
[2016-06-14] MEDS: SODIUM CHLORIDE 0.9% FLUSH 10 ML FLUSH IV FLUSH SCH ×2 (09:31→21:00)
[2016-06-14] MEDS: SODIUM BICARBONATE 650 MG TAB PO SCH ×2 (09:35→20:25)
[2016-06-14] MEDS: BUDESONIDE-FORMOTEROL 160/4.5 MCG INHALER INH SCH ×2 (09:35→20:38)
[2016-06-14] MEDS: LACTOBACILLUS ACIDOPHILUS TAB PO SCH ×3 (09:35→18:00)
[2016-06-14] MEDS ORDERED: POTASSIUM CHLORIDE 25 MEQ EFFERVESCENT TAB PO ONE (11:30)
--- NOTE | 2016-06-14 11:30 | HHI.PR ---
Subjective Remarks Follow-up for acute renal failure Blood pressure elevated, denies any headache, nausea or vomiting. No shortness of breath. Good urine output. Objective Vitals Vital Signs Date Time Temp Pulse Resp B/P Pulse Ox O2 Delivery O2 Flow Rate FiO2 06/14/16 08:00 97.6 92 20 176/114 97 06/14/16 04:00 96.2 90 17 168/88 95 06/14/16 00:07 100 06/14/16 00:00 96.4 88 17 123/90 96 06/13/16 20:00 97.0 90 18 124/90 96 06/13/16 17:21 96 06/13/16 16:00 97.4 99 16 140/81 99 06/13/16 14:00 98.4 75 12 125/67 99 06/13/16 13:26 74 17 169/91 95 Room Air 06/13/16 11:52 79 18 173/89 98 Room Air I/O 06/13/16 06/13/16 06/13/16 06/14/16 06/14/16 06/14/16 07:00 15:00 23:00 07:00 15:00 23:00 Intake Total 240 ml 2540 ml Output Total 1050 ml Balance 240 ml 1490 ml Intake Oral 240 ml 240 ml IV Total 2300 ml Output Urine Total 1050 ml Bladder Scan Volume Amount 696 ml # Voids 1 Result Diagram: 06/13/16 0045 06/14/16 0620 Objective Remarks Not in distress, well-nourished, looks stated age PERRL, pink conjunctiva without injection, anicteric Nose without bleeding, airway patent, oropharynx clear Supple neck, no masses or thyromegaly, trachea midline Normal rate and regular rhythm, no murmurs gallops or rubs appreciated. Clear to auscultation and symmetric bilaterally, normal respiratory effort. Normal bowel sounds, soft, mild abdominal tenderness Extremities without clubbing, cyanosis, or edema. No rash of generalized distribution. Skin is warm and dry. AAO x3, no cranial nerve deficits, moves all 4 extremities, no focal neurologic deficits Normal mood, appropriate affect A/P Problem List: (1) Acute kidney failure ICD Code: N17.9 Status: Acute (2) Nausea & vomiting ICD Code: R11.2 Status: Acute (3) Allergic reaction ICD Code: T78.40XA Status: Acute Assessment and Plan 55 y/o female with a history of Esophageal/ stomach cancer, COPD, and presented to the hospital with complaints of nausea, vomiting, and a rash. Acute Kidney failure, likely dehydration caused from vomiting, nonoliguric- still with good urine output, creatinine down to 2.72. Ultrasound negative for acute etiologies. Decrease IVF to 100 cc/h. Urinalysis did not show any proteinuria. Labs: Creatine 3.9, better, continue IVF, increase to 1 50 cc per hour, check ultrasound of the kidneys, urinalysis did not show any proteinuria. Nausea and vomiting -Emetics as needed Allergic reaction, rash notice on chest and cheeks -Continue to monitor, Benadryl as needed Hypokalemia-replaced DVT prophylaxis: Heparin Restart home meds, hold off on midodrine and fludrocortisone Discharge Planning Possible discharge tomorrow Problem Qualifiers (1) Acute kidney failure: Qualified Code: N17.9 - Acute renal failure, unspecified acute renal failure type (2) Nausea & vomiting: Qualified Code: R11.2 - Nausea and vomiting, intractability of vomiting not specified, unspecified vomiting type (3) Allergic reaction: Qualified Code: T78.40XA - Allergic reaction, initial encounter Brian Che MD Jun 14, 2016 11:30
[2016-06-15] VITALS (8 sets, daily range): BP systolic 110–179; BP diastolic 60–104; PULSE 76–100; RESP 16–18; TEMP 97.3–99.1; O2SAT 94–97
[2016-06-15] MEDS ORDERED: PROCHLORPERAZINE INJ 10 MG/2 ML VIAL IV PUSH ONE (00:30)
[2016-06-15] MEDS: SODIUM CHLOR 0.9% 1000 ML INJ 1,000 ML IV SCH ×5 (00:58→22:58)
[2016-06-15] MEDS: HEPARIN SODIUM - SQ 10,000 UNITS/ML VIAL SQ SCH ×3 (06:43→21:35)
[2016-06-15 08:54] LABS: BICARBONATE 20.6 MEQ/L (21.0-32.0); POTASSIUM 3.4 MEQ/L (3.5-5.1)
[2016-06-15] MEDS: SODIUM CHLORIDE 0.9% FLUSH 10 ML FLUSH IV FLUSH SCH ×2 (08:56→21:00)
[2016-06-15] MEDS: BUDESONIDE-FORMOTEROL 160/4.5 MCG INHALER INH SCH ×2 (09:04→21:35)
[2016-06-15] MEDS: SODIUM BICARBONATE 650 MG TAB PO SCH ×2 (09:04→21:35)
[2016-06-15] MEDS: LACTOBACILLUS ACIDOPHILUS TAB PO SCH ×3 (09:04→17:21)
[2016-06-15] MEDS ORDERED: POTASSIUM CHLORIDE 25 MEQ EFFERVESCENT TAB PO ONE (10:00)
[2016-06-15] MEDS: cloNIDine HCL 0.1 MG TAB PO PRN (10:07)
[2016-06-15] MEDS: HYDROmorphone HCL PF 1 MG/ML VIAL IV PUSH PRN (12:45)
--- NOTE | 2016-06-15 14:07 | HHI.PR ---
Subjective Remarks Follow-up for acute renal failure Creatinine better but not back to baseline, no overnight events, denies any chest pain or shortness of breath. Blood pressure elevated but denies any headache or chest pain. Objective Vitals Vital Signs Date Time Temp Pulse Resp B/P Pulse Ox O2 Delivery O2 Flow Rate FiO2 06/15/16 12:00 99.1 98 16 141/92 95 06/15/16 09:00 94 179/104 06/15/16 08:05 95 06/15/16 08:00 98.4 99 16 177/102 95 06/15/16 04:00 98.1 94 16 153/99 94 06/15/16 00:00 98.4 100 17 170/99 94 06/14/16 20:00 98.2 97 16 141/92 94 06/14/16 17:30 89 145/93 06/14/16 16:00 98.8 94 16 170/122 96 I/O 06/14/16 06/14/16 06/14/16 06/15/16 06/15/16 06/15/16 07:00 15:00 23:00 07:00 15:00 23:00 Intake Total 2540 ml 480 ml 1821 ml 240 ml 2116 ml Output Total 1050 ml 800 ml 650 ml Balance 1490 ml -320 ml 1821 ml -410 ml 2116 ml Intake Oral 240 ml 480 ml 480 ml 240 ml IV Total 2300 ml 1341 ml 2116 ml Output Urine Total 1050 ml 800 ml 650 ml Bladder Scan Volume Amount 696 ml # Bowel Movements 1 Result Diagram: 06/13/16 0045 06/15/16 0700 Objective Remarks Not in distress, well-nourished, looks stated age PERRL, pink conjunctiva without injection, anicteric Nose without bleeding, airway patent, oropharynx clear Supple neck, no masses or thyromegaly, trachea midline Normal rate and regular rhythm, no murmurs gallops or rubs appreciated. Clear to auscultation and symmetric bilaterally, normal respiratory effort. Normal bowel sounds, soft, mild abdominal tenderness Extremities without clubbing, cyanosis, or edema. No rash of generalized distribution. Skin is warm and dry. AAO x3, no cranial nerve deficits, moves all 4 extremities, no focal neurologic deficits Normal mood, appropriate affect A/P Problem List: (1) Acute kidney failure ICD Code: N17.9 Status: Acute (2) Nausea & vomiting ICD Code: R11.2 Status: Acute (3) Allergic reaction ICD Code: T78.40XA Status: Acute Assessment and Plan 55 y/o female with a history of Esophageal/ stomach cancer, COPD, and presented to the hospital with complaints of nausea, vomiting, and a rash. Acute Kidney failure, likely dehydration caused from vomiting, nonoliguric- still with good urine output, creatinine down to 2.72. Ultrasound negative for acute etiologies. Decrease IVF to 100 cc/h. Urinalysis did not show any proteinuria. Labs: Creatine 2.0, better, continue IVF, increase to 150 cc per hour, ultrasound of the kidneys unremarkable, urinalysis did not show any proteinuria. Recheck BMP tomorrow. Nausea and vomiting -Emetics as needed Allergic reaction, rash notice on chest and cheeks -Continue to monitor, Benadryl as needed Hypertension-previously with orthostatic hypotension, clonidine as needed. Hold off antihypertensives for now. Hold off midodrine and fludrocortisone. Blood pressure has been relatively stable. Hypokalemia-replaced Hypomagnesemia-replaced, recheck tomorrow. DVT prophylaxis: Heparin Discharge Planning Possible discharge tomorrow Problem Qualifiers (1) Acute kidney failure: Qualified Code: N17.9 - Acute renal failure, unspecified acute renal failure type (2) Nausea & vomiting: Qualified Code: R11.2 - Nausea and vomiting, intractability of vomiting not specified, unspecified vomiting type (3) Allergic reaction: Qualified Code: T78.40XA - Allergic reaction, initial encounter Brian Che MD Jun 15, 2016 14:07
[2016-06-15] MEDS: MAGNESIUM SULFATE 1 GM PREMIX 100 ML IV SCH ×3 (14:55→17:21)
[2016-06-15] MEDS: ACETAMINOPHEN/HYDROcodone 325 MG/5 MG TAB PO PRN (21:36)
[2016-06-16] VITALS: BP 137/82; PULSE 90; RESP 19; TEMP 98.5; O2SAT 96
[2016-06-16] MEDS: ACETAMINOPHEN/HYDROcodone 325 MG/10 MG TAB PO PRN ×3 (03:34→20:17)
[2016-06-16 04:00] VITALS: BP 150/98; PULSE 94; RESP 19; TEMP 98; O2SAT 96
[2016-06-16] MEDS: SODIUM CHLOR 0.9% 1000 ML INJ 1,000 ML IV SCH ×3 (05:38→22:28)
[2016-06-16] MEDS: ACETAMINOPHEN/HYDROcodone 325 MG/5 MG TAB PO PRN (06:19)
[2016-06-16] MEDS: HEPARIN SODIUM - SQ 10,000 UNITS/ML VIAL SQ SCH ×3 (06:19→22:27)
[2016-06-16 08:00] VITALS: BP 158/95; PULSE 79; RESP 20; TEMP 97.2; O2SAT 96
[2016-06-16 08:10] LABS: BICARBONATE 20.9 MEQ/L (21.0-32.0); MAGNESIUM 1.6 MG/DL (1.5-2.5); POTASSIUM 3.1 MEQ/L (3.5-5.1)
[2016-06-16] MEDS ORDERED: POTASSIUM CHLORIDE 20 MEQ CONTROLLED RELEASE TAB PO ONE (10:00)
[2016-06-16] MEDS ORDERED: MAGNESIUM SULFATE 1 GM PREMIX 100 ML IV ONE (10:00)
[2016-06-16] MEDS: SODIUM CHLORIDE 0.9% FLUSH 10 ML FLUSH IV FLUSH SCH ×2 (10:02→20:18)
[2016-06-16] MEDS: SODIUM BICARBONATE 650 MG TAB PO SCH ×2 (10:02→20:15)
[2016-06-16] MEDS: LACTOBACILLUS ACIDOPHILUS TAB PO SCH ×3 (10:02→19:24)
[2016-06-16] MEDS: BUDESONIDE-FORMOTEROL 160/4.5 MCG INHALER INH SCH ×2 (10:06→20:19)
[2016-06-16] MEDS ORDERED: POTASSIUM CHLORIDE 25 MEQ EFFERVESCENT TAB PO ONE (11:00)
--- NOTE | 2016-06-16 11:06 | HHI.PR ---
Subjective Remarks Follow-up for acute renal failure, N/V and allergic reaction rash Creatinine better but not back to baseline. Denies N/V x 1 day. reports rash face, chest and back improving but still itching. Reports feeling better. Producing good amounts of urine Objective Vitals Vital Signs Date Time Temp Pulse Resp B/P Pulse Ox O2 Delivery O2 Flow Rate FiO2 06/16/16 10:02 16 06/16/16 08:00 97.2 79 20 158/95 96 06/16/16 04:37 16 06/16/16 04:00 98.0 94 19 150/98 96 06/16/16 00:00 98.5 90 19 137/82 96 06/15/16 20:00 97.5 76 18 142/98 97 06/15/16 16:00 97.3 85 16 133/92 97 06/15/16 12:00 99.1 98 16 141/92 95 I/O 06/15/16 06/15/16 06/15/16 06/16/16 06/16/16 06/16/16 07:00 15:00 23:00 07:00 15:00 23:00 Intake Total 240 ml 2356 ml 480 ml 480 ml Output Total 650 ml 800 ml 250 ml 300 ml Balance -410 ml 1556 ml 230 ml 180 ml Intake Oral 240 ml 240 ml 480 ml 480 ml IV Total 2116 ml Output Urine Total 650 ml 800 ml 250 ml 300 ml # Voids 2 3 1 # Bowel Movements 1 2 Result Diagram: 06/13/16 0045 06/16/16 0725 Imaging Last Impressions Renal Ultrasound 06/13/16 0000 Signed Impressions: Service Date/Time: Monday, June 13, 2016 17:03 - CONCLUSION: No acute disease. Rocael Willett MD Objective Remarks Not in distress, well-nourished, looks stated age EOMI, pink conjunctiva without injection, anicteric Nose without bleeding, airway patent, oropharynx clear Supple neck, no masses or thyromegaly, trachea midline Normal rate and regular rhythm, no murmurs gallops or rubs appreciated. Clear to auscultation and symmetric bilaterally, normal respiratory effort. Normal bowel sounds, soft, mild abdominal tenderness Extremities without clubbing, cyanosis, or edema. Skin is warm and dry. few scattered excoriated areas upper back and chest, healing rash AAO x3, moves all 4 extremities, no focal neurologic deficits Normal mood, appropriate affect A/P Problem List: (1) Acute kidney failure ICD Code: N17.9 Status: Acute (2) Nausea & vomiting ICD Code: R11.2 Status: Acute (3) Allergic reaction ICD Code: T78.40XA Status: Acute Assessment and Plan 55 y/o female with a history of Esophageal/ stomach cancer, COPD, and presented to the hospital with complaints of nausea, vomiting, and a rash. Acute Kidney failure, likely dehydration caused from vomiting, nonoliguric- still with good urine output, creatinine down to 1.39. Ultrasound negative for acute etiologies. Decrease IVF to 75 cc/h. Urinalysis did not show any proteinuria. Labs: Creatine 1.39, better. Encourage PO hydration. Recheck BMP tomorrow. Nausea and vomiting- resolved Emetics as needed Continue to monitor Allergic reaction, rash notice on chest and upper back- improving Continue to monitor, Benadryl as needed, hydrocortisone 1% x 5 days Hypertension-previously with orthostatic hypotension, clonidine as needed. Hold off antihypertensives for now. Hold off midodrine and fludrocortisone. Blood pressure has been relatively stable. Hypokalemia-replaced recheck in AM Hypomagnesemia-replaced. DVT prophylaxis: Heparin not able to DC today as creatinine trending down but not yet to baseline possible DC tomorrow Discussed with patient and nursing Written by Arpita Hussein, acting as scribe for Dr. Gomez on 06/16/16 at 11: 05. Attending Statement All or portions of this note were transcribed by Caro pratt. I, Dr. Lizzeth Gomez personally performed the history, physical exam, and medical decision making; and confirmed the accuracy of the information in the transcribed note. Authenticated by Dr. Lizzeth Gomez on 06/16/16 at 11:05 Problem Qualifiers (1) Acute kidney failure: Qualified Code: N17.9 - Acute renal failure, unspecified acute renal failure type (2) Nausea & vomiting: Qualified Code: R11.2 - Nausea and vomiting, intractability of vomiting not specified, unspecified vomiting type (3) Allergic reaction: Qualified Code: T78.40XA - Allergic reaction, initial encounter Arpita Hussein Jun 16, 2016 11:06 Lizzeth Gomez MD Jun 16, 2016 18:43
[2016-06-16 12:00] VITALS: BP 139/82; PULSE 79; RESP 20; TEMP 96.9; O2SAT 95
[2016-06-16] MEDS ORDERED: HYDROCORTISONE 0.5% CREAM 30 GM TOPICAL SCH (12:00)
[2016-06-16] MEDS: ONDANSETRON HCL 4 MG/2 ML VIAL IVP PRN ×2 (14:14→20:11)
[2016-06-16 16:00] VITALS: BP 130/79; PULSE 83; RESP 20; TEMP 97.4; O2SAT 95
[2016-06-16] MEDS: HYDROmorphone HCL PF 1 MG/ML VIAL IV PUSH PRN (16:34)
[2016-06-16] MEDS: HYDROCORTISONE 1% CREAM 30 GM TOPICAL SCH ×2 (18:46→20:20)
[2016-06-16 20:00] VITALS: BP 174/110; PULSE 104; RESP 18; TEMP 97.8; O2SAT 95
[2016-06-16] MEDS: cloNIDine HCL 0.1 MG TAB PO PRN (22:27)
[2016-06-17] VITALS: BP 146/93; PULSE 80; RESP 16; TEMP 97.4; O2SAT 95
[2016-06-17 04:00] VITALS: BP 145/91; PULSE 82; RESP 17; TEMP 97.7; O2SAT 98
[2016-06-17] MEDS: HYDROCORTISONE 1% CREAM 30 GM TOPICAL SCH (04:14)
[2016-06-17] MEDS: HEPARIN SODIUM - SQ 10,000 UNITS/ML VIAL SQ SCH (05:04)
[2016-06-17] MEDS: ONDANSETRON HCL 4 MG/2 ML VIAL IVP PRN (05:07)
[2016-06-17] MEDS: ACETAMINOPHEN/HYDROcodone 325 MG/10 MG TAB PO PRN ×2 (05:25→13:12)
[2016-06-17 06:20] LABS: BICARBONATE 23.1 MEQ/L (21.0-32.0); POTASSIUM 3.3 MEQ/L (3.5-5.1)
[2016-06-17 08:00] VITALS: BP 160/96; PULSE 83; RESP 16; TEMP 97.4; O2SAT 96
[2016-06-17] MEDS ORDERED: HYDR-3516 PO (08:12)
[2016-06-17] MEDS ORDERED: POTASSIUM CHLORIDE 25 MEQ EFFERVESCENT TAB PO ONE (08:15)
[2016-06-17] MEDS ORDERED: ZOFR4TAB PO (08:16)
[2016-06-17] MEDS ORDERED: PERI8.6T PO (08:17)
[2016-06-17] MEDS ORDERED: POTA10LI10 PO (08:18)
--- NOTE | 2016-06-17 08:20 | HHI.DCPOC ---
Discharge Care Plan Diagnosis: (1) Acute kidney failure (2) Nausea & vomiting Goals to Promote Your Health * To prevent worsening of your condition and complications * To maintain your health at the optimal level Directions to Meet Your Goals Take your medications as prescribed Follow your dietary instruction Follow activity as directed Keep your appointments as scheduled Take your immunizations and boosters as scheduled If your symptoms worsen call your PCP, if no PCP go to Urgent Care Center or Emergency Room Smoking is Dangerous to Your Health. Avoid second hand smoke Call the 24-hour hour crisis hotline for domestic abuse at Lizzeth Gomez MD Jun 17, 2016 08:20
--- NOTE | 2016-06-17 08:26 | HHI.DS ---
Discharge Summary Admission Date Jun 13, 2016 at 02:37 Discharge Date: Jun 17, 2016 Admitting Diagnosis Renal Failure, N/V (1) Acute kidney failure ICD Code: N17.9 Diagnosis: Principal (2) Nausea & vomiting ICD Code: R11.2 Diagnosis: Principal (3) Allergic reaction ICD Code: T78.40XA Diagnosis: Secondary Procedures none Brief History - From Admission 55 y/o female with a history of Esophageal/ stomach cancer, COPD, and presented to the hospital with complaints of nausea, vomiting, and a rash. Since being discharged she has had constant nausea and vomiting every day, and has been unable to keep anything down.. Denies any diarrhea, She says she has not had a BM since Discharge. She denies any dysuria but does say she has noticed to be urinating less each day. She also complains of a rash on chest for the past 7 days, while at home she used calamine lotion last night and then she woke up today it had spread to her neck and face. She states she did have the rash last admission and was started on multiple different medications, fluid is unsure which one she is having a reaction to. Patient does state she was discharged with ciprofloxacin, but that has not been documented. She denies any chest pain, SOB, fever or chills. CBC/BMP: 06/13/16 0045 06/17/16 0515 Significant Findings Laboratory Tests Test 06/15/16 06/16/16 06/17/16 07:00 07:25 05:15 Potassium Level 3.4 MEQ/L 3.1 MEQ/L 3.3 MEQ/L (3.5-5.1) (3.5-5.1) (3.5-5.1) Carbon Dioxide Level 20.6 MEQ/L 20.9 MEQ/L (21.0-32.0) (21.0-32.0) Creatinine 2.04 MG/DL 1.39 MG/DL 1.25 MG/DL (0.50-1.00) (0.50-1.00) (0.50-1.00) Estimat Glomerular Filtration 25 ML/MIN (>89) 39 ML/MIN (>89) 44 ML/MIN (>89) Rate Calcium Level 7.9 MG/DL 7.6 MG/DL 7.9 MG/DL (8.5-10.1) (8.5-10.1) (8.5-10.1) Magnesium Level 0.9 MG/DL (1.5-2.5) Chloride Level 108 MEQ/L (98-107) Blood Urea Nitrogen 5 MG/DL (7-18) Imaging Last Impressions Renal Ultrasound 06/13/16 0000 Signed Impressions: Service Date/Time: Monday, June 13, 2016 17:03 - CONCLUSION: No acute disease. Rocael Willett MD PE at Discharge Not in distress, well-nourished, looks stated age EOMI, pink conjunctiva without injection, anicteric Nose without bleeding, airway patent, oropharynx clear Supple neck, no masses or thyromegaly, trachea midline Normal rate and regular rhythm, no murmurs gallops or rubs appreciated. Clear to auscultation and symmetric bilaterally, normal respiratory effort. Normal bowel sounds, soft, mild abdominal tenderness Extremities without clubbing, cyanosis, or edema. Skin is warm and dry. few scattered excoriated areas upper back and chest, healing rash AAO x3, moves all 4 extremities, no focal neurologic deficits Normal mood, appropriate affect Pt update on day of discharge Pt tells me that she had two episodes of diarrhea overnight. Some nausea yesterday and vomited once last night. But no nausea or vomiting this morning. hasn't had breakfast yet. She tells me that she has the paperwork for the patient assistance but has to turn it in upon discharge. Discussed w RN, no new episodes of nausea or vomiting this morning. No diarrhea this morning reported. Hospital Course Acute Kidney failure, likely dehydration caused from vomiting, nonoliguric- still with good urine output, creatinine down to 1.25. Ultrasound negative for acute etiologies. s/p IVF. Urinalysis did not show any proteinuria. Encourage PO hydration. Recheck BMP in 2-3 days w copy to Dr. Villeda Nausea and vomiting- resolved script for zofran in chart Allergic reaction, rash notice on chest and upper back- improved s/p hydrocrotisone crea Hypertension-previously with orthostatic hypotension, clonidine as needed. Hold off antihypertensives for now. Hold off midodrine and fludrocortisone. Blood pressure has been relatively stable. Monitor closely as an outpatient. Hypokalemia-replaced recheck in AM Hypomagnesemia-replaced. Pt Condition on Discharge: Stable Discharge Disposition: Discharge Home Discharge Time: > 30 minutes Discharge Instructions DIET: Follow Instructions for: Heart Healthy Diet Additional Diet Instructions: avoid dairy products Activities you can perform: Regular-No Restrictions Follow up Referrals: Physician - 1 Week New Orders: BASIC METABOLIC PROF - 2-3 Days New Medications: Ondansetron (Zofran) 4 Mg Tab 4 MG PO Q6HR PRN NAUSEA OR VOMITING #15 Ref 0 TAB Potassium Chloride Liq (Potassium Chloride Liq) 40 Meq/15 Ml Soln 40 MEQ PO DAILY Electrolyte Replacement Days 10 Ref 0 ML Sennosides-Docusate Sodium (Diana-Colace) 8.6-50 Mg Tab 1 TAB PO BID PRN Constipation #60 Ref 0 TAB Hydrocodone-Acetaminophen (Hydrocodone-Acetaminophen) 5-325 mg Tab 1 TAB PO Q4H PRN PAIN SCALE 6 TO 10 #10 TAB Continued Medications: Albuterol Neb (Albuterol Neb) 2.5 Mg/0.5 Ml Neb 2.5 MG NEB Q4HR NEB Note: The Albuterol Sulfate Inhalation Solution is concentrated and must be diluted. Read complete instructions carefully before using. PRN SOB/WHEEZING EA Budesonide-Formoterol Inh (Symbicort Inh) 160-4.5 Mcg/Act Aero 2 PUFF INH Q12HR Breathing Treatment #1 INHALER Dicyclomine (Bentyl) 20 Mg Tab 20 MG PO TID PRN abdominal cramping #20 TAB Lactobacillus Acidophilus (Acidophilus/l-Sporogenes) 1 Tab Tab 1 TAB PO TID diarrhea #14 TAB Meclizine (Meclizine) 25 Mg Tab 25 MG PO Q6H PRN vertigo #20 TAB Discontinued Medications: Fludrocortisone (Fludrocortisone) 0.1 Mg Tab 0.1 MG PO DAILY orthostatic #21 TAB Midodrine (Midodrine) 5 Mg Tab 5 MG PO TID@07,12,17 orthostatics #30 TAB Midodrine (Midodrine) 5 Mg Tab 5 MG PO TID@07,12,17 orthostatic Days 21 TAB Lizzeth Gomez MD Jun 17, 2016 08:26
[2016-06-17] MEDS: LACTOBACILLUS ACIDOPHILUS TAB PO SCH ×2 (09:21→13:12)
[2016-06-17] MEDS: SODIUM CHLORIDE 0.9% FLUSH 10 ML FLUSH IV FLUSH SCH (09:21)
[2016-06-17] MEDS: SODIUM BICARBONATE 650 MG TAB PO SCH (09:21)
[2016-06-17] MEDS: BUDESONIDE-FORMOTEROL 160/4.5 MCG INHALER INH SCH (09:21)
[2016-06-17 12:00] VITALS: BP 138/84; PULSE 77; RESP 16; TEMP 97.3; O2SAT 96
== END 2016-06-17 14:50 | disposition home or self-care (01) | DRG 684 ==
LOC: NEPE 20:22 → NEDA 06-13 02:37 → NEDH 06-13 07:16 → HOCA 06-13 13:32
PROVIDERS: ADMIT Hospitalist; ATTEND Hospitalist
DX: N17.9 Acute kidney failure, unspecified (principal); J44.9 Chronic obstructive pulmonary disease, unspecified; I10 Essential (primary) hypertension; E86.0 Dehydration; R11.2 Nausea with vomiting, unspecified; T50.905A Adverse effect of unspecified drugs, medicaments and biological substances, initial encounter; L27.0 Generalized skin eruption due to drugs and medicaments taken internally; Z87.01 Personal history of pneumonia (recurrent); E87.6 Hypokalemia; E83.42 Hypomagnesemia; Z85.028 Personal history of other malignant neoplasm of stomach; Z85.01 Personal history of malignant neoplasm of esophagus; Z92.3 Personal history of irradiation; Z96.641 Presence of right artificial hip joint; Z87.891 Personal history of nicotine dependence
CPT/HCPCS: 76775; 80048; 80053; 81001; 82550; 83735; 85007; 85027; 96374; J0780; J1170; J1644; J2270; J2405; J3475; J7030